=== PATIENT | male | born 1980 | race Caucasian/White ===

== ENCOUNTER → 2016-09-10 | Outpatient (CLI) | payer BC ==
[~2016-09-10] MED LIST: IBUP-103 PO; NRV/5 PO
[2016-09-10 11:43] LABS: ALT/SGPT 91 U/L (12-78); BLOOD UREA NITROGEN 15 mg/dl (7-18); CALCIUM 8.8 mg/dl (8.5-10.1); CARBON DIOXIDE 22 mmol/L (21-32); CHLORIDE 106 mmol/L (98-107); CHOLESTEROL 162 mg/dl (0-200); GLUCOSE 118 mg/dl (70-99); POTASSIUM 4.2 mmol/L (3.5-5.1); SODIUM 140 mmol/L (136-145); TRIGLYCERIDES 159 mg/dl (0-150); VERY LOW DENSITY LIPOPROT CALC 32 mg/dl
[2016-09-10 11:47] LABS: ALB/GLOB RATIO 1.3 (0.9-2); ALKALINE PHOSPHATASE 72 U/L (45-117); AST/SGOT 35 U/L (15-37); CHOLESTEROL/HDL RATIO 5.1; HDL CHOLESTEROL 32 mg/dl; LDL CHOLESTEROL CALCULATED 98 mg/dl
== END | disposition home or self-care (01) ==
LOC: C.LAB 09:42
PROVIDERS: ATTEND Nurse Practitioner Family
DX: Z13.220 Encounter for screening for lipoid disorders (principal)

== ENCOUNTER → 2017-07-09 | Outpatient (CLI) | payer BC ==
[2017-07-09 12:43] LABS: ALB/GLOB RATIO 1.3 (0.9-2); ALT/SGPT 103 U/L (12-78); AST/SGOT 50 U/L (15-37); BLOOD UREA NITROGEN 16 mg/dl (7-18); BUN/CREATININE RATIO 15.3 (10-20); CALCIUM 8.8 mg/dl (8.5-10.1); CARBON DIOXIDE 25 mmol/L (21-32); CHLORIDE 106 mmol/L (98-107); CREATININE 1.07 mg/dl (0.60-1.40); GLUCOSE 110 mg/dl (70-99); POTASSIUM 3.6 mmol/L (3.5-5.1); SODIUM 136 mmol/L (136-145); TRIGLYCERIDES 178 mg/dl (0-150)
[2017-07-09 12:44] LABS: ALKALINE PHOSPHATASE 73 U/L (45-117)
[2017-07-09 12:48] LABS: ESTIMATED AVERAGE GLUCOSE 117 mg/dl; HA1C FLAG Normal (Normal)
== END | disposition home or self-care (01) ==
LOC: C.LAB 10:55
PROVIDERS: ATTEND Nurse Practitioner Family
DX: E78.1 Pure hyperglyceridemia (principal)

== ENCOUNTER → 2017-07-17 | Outpatient (CLI) | payer BC ==
--- NOTE | 2017-07-17 09:07 | DIAGNOSTIC IMAGING REPORT ---
BILIARY ULTRASOUND CLINICAL HISTORY: ELEVATED LIVER ENZYMES;R74.8 COMPARISON STUDY: 02/02/2015 FINDINGS: The pancreas appears sonographically normal area the liver demonstrates diffusely increased echogenicity, nonspecific finding most often seen in hepatic steatosis. There is no ductal dilatation. The common bile duct measures 2.5 mm. There is a gallstone demonstrating shadowing. IMPRESSION: 1. Cholelithiasis. No evidence of ductal dilatation 2. Increased hepatic echogenicity, a finding likely secondary to hepatic steatosis Electronically signed by: Ike Nixon M.D. 07/17/2017 9:06 AM Dictated Date/Time: 07/17/2017 9:04 AM
== END | disposition home or self-care (01) ==
LOC: C.ULTR 08:03
PROVIDERS: ATTEND Nurse Practitioner Family
DX: R74.8 Abnormal levels of other serum enzymes (principal); K80.20 Calculus of gallbladder without cholecystitis without obstruction

== ENCOUNTER → 2017-11-21 | Day surgery (SDC) | payer BC ==
[2017-11-18 15:51] VITALS: Ht 177.8 cm; Wt 122.7 kg
[~2017-11-21] VITALS: Ht 177.8 cm; Wt 122.7 kg
[~2017-11-21] MED LIST changes: -IBUP-103 PO; +LIDOCAINE HCL 2% 2 ML VIAL (20MG/ML) ONE; +LISI-729 PO; +MIDAZOLAM HCL 1 MG/ML 2ML VIAL ONE; -NRV/5 PO; +PROPOFOL IV EMULSION 10 MG/ML 20 ML VIAL IV ONE; +SODIUM CHLORIDE 0.9% 500ML 500 ML IV ONE
--- NOTE | 2017-11-21 14:06 | Endo History and Physical ---
History & Physical Date of Service: Nov 21, 2017. Chief Complaint: Rectal bleeding Referring Physician: Fransisco Lucia History of Present Illness 37 yo CM who presents for colonoscopy secondary to rectal bleeding. Past Surgical History Hx Cardiac Surgery: No Hx Internal Defibrillator: No Hx Pacemaker: No Hx Abdominal Surgery: No Hx of Implantable Prosthesis: No Hx Post-Op Nausea and Vomiting: No Hx Cancer Surgery: No Hx Thoracic Surgery: No Hx Orthopedic: No Hx Urinary Tract Surgery: No Family History None Social History Smoking Status: Never Smoker Hx Substance Use: No Hx Alcohol Use: Yes (RARELY) Allergies Coded Allergies: Amlodipine (Verified Allergy, Unknown, DIARRHEA, 11/18/17) Current Medications Reported Home Medications Medications Dose Route/Sig Max Daily Dose Days Date Category Zestril (Lisinopril) 5 Mg Tab 5 Mg PO QPM 11/18/17 Reported Vital Signs Weight (Kilograms): 122.73 Height (Feet): 5 Height (Inches): 10 Physical Exam General Appearance: WD/WN, no apparent distress Respiratory/Chest: Auscultation: breath sounds normal Cardiovascular: Heart Auscultation: RRR Abdomen: Bowel Sounds: normal Inspection & Palpation: soft, non-distended, no tenderness, guarding & rebound Assessment and Plan Assessment: 37 yo CM who presents for colonoscopy secondary to rectal bleeding. Plan: Proceed with colonoscopy.
--- NOTE | 2017-11-21 14:49 | Discharge Instructions ---
Endoscopy Patient Instructions Date / Procedure(s) Performed Nov 21, 2017. Colonoscopy Allergy Information Coded Allergies: Amlodipine (Verified Allergy, Unknown, DIARRHEA, 11/18/17) Discharge Date / Findings Nov 21, 2017. Colon polyp Hemorrhoids Medication Instructions OK to resume all medications today as prescribed Reported Home Medications Medications Dose Route/Sig Max Daily Dose Days Date Category Zestril (Lisinopril) 5 Mg Tab 5 Mg PO QPM 11/18/17 Reported Provider Instructions Activity Restrictions - No exercising or heavy lifting for 24 hours. - Do not drink alcohol the day of the procedure. - Do not drive a car or operate machinery until the day after the procedure. - Do not make any important decisions or sign important papers in 24 hours after the procedure. Following Day: - Return to full activity which may include returning to work/school. Diet Start your diet with liquids and light foods (jello, soup, juice, toast). Then eat your usual diet if not nauseated. Treatment For Common After Affects For mild abdominal pain, bloating, or excessive gas: - Rest - Eat lightly - Lie on right side Follow-Up Information Follow-up with Dr. Fransisco Lucia as scheduled Anesthesia Information What You Should Know You have had a procedure that required some medicine to reduce anxiety and discomfort. This treatment is called moderate sedation. After receiving the treatment, you may be sleepy, but you will be able to breathe on your own. The effects of the treatment may last for several hours. Follow these instructions along with Activity/Diet recommendations noted above: * Do NOT do anything where dizziness or clumsiness would be dangerous. * Rest quietly at home today, then you can be up and about tomorrow. * Have a responsible person stay with you the rest of today. * You may have had an I.V. today. If so, you may take the dressing off later today. Recommendations Call your doctor if: * Trouble breathing * Continuous vomiting for more than 24 hours * Temperature above 101 degrees * Severe abdominal pain or bloating * Pain not relieved by pain medicine ordered * There is increased drainage or redness from any incision * A large amount of rectal bleeding greater than 2-3 tablespoons. (If you had a polyp/s removed or have hemorrhoids, a small amount of blood - from the rectum is to be expected.) * You have any unanswered questions or concerns. IN THE EVENT OF A SERIOUS EMERGENCY, GO TO THE NEAREST EMERGENCY ROOM Your discharge instructions were prepared by provider Mohinder Benoit. Patient Instructions Signature Page Manuel Lucia Patient (or Guardian) Signature/Date: I have read and understand the instructions given to me by my caregivers. Caregiver/RN/Doctor Signature/Date: The above-named patient and/or guardian has received patient instructions on this date. + Original Patient Signature Page (only) stays with chart. Please make copy for patient.
--- NOTE | 2017-11-21 14:54 | GI REPORT ---
Procedure Date: 11/21/2017 2:29 PM Procedure: Colonoscopy Indications: Rectal bleeding Medicines: Monitored Anesthesia Care Complications: No immediate complications. Estimated Blood Loss: Estimated blood loss: none. Procedure: Pre-Anesthesia Assessment: - Prior to the procedure, a History and Physical was performed, and patient medications and allergies were reviewed. The patient's tolerance of previous anesthesia was also reviewed. The risks and benefits of the procedure and the sedation options and risks were discussed with the patient. All questions were answered, and informed consent was obtained. Prior Anticoagulants: The patient has taken no previous anticoagulant or antiplatelet agents. ASA Grade Assessment: II - A patient with mild systemic disease. After reviewing the risks and benefits, the patient was deemed in satisfactory condition to undergo the procedure. After I obtained informed consent, the scope was passed under direct vision. Throughout the procedure, the patient's blood pressure, pulse, and oxygen saturations were monitored continuously. The scope was introduced through the anus and advanced to the terminal ileum. The colonoscopy was performed without difficulty. The patient tolerated the procedure well. The quality of the bowel preparation was good. The terminal ileum, the appendiceal orifice and the rectum were photographed. Findings: The perianal and digital rectal examinations were normal. Multiple small-mouthed diverticula were found in the sigmoid colon. A 5 mm polyp was found in the sigmoid colon. The polyp was sessile. The polyp was removed with a cold snare. Resection and retrieval were complete. Non-bleeding internal hemorrhoids were found during retroflexion. The hemorrhoids were small. Impression: - Diverticulosis in the sigmoid colon. - One 5 mm polyp in the sigmoid colon, removed with a cold snare. Resected and retrieved. - Non-bleeding internal hemorrhoids. Recommendation: - Resume previous diet. - Continue present medications. - Repeat colonoscopy for surveillance based on pathology results. - Return to primary care physician as previously scheduled. Mohinder Benoit DO 11/21/2017 2:53:46 PM This report has been signed electronically. Note Initiated On: 11/21/2017 2:29 PM I attest to the content of the Intraoperative Record and orders documented therein, exceptions below
[2017-11-21 14:58] VITALS: BP 132/89; PULSE 82; O2SAT 96
--- NOTE | 2017-11-21 15:00 | Anesthesiology Progress Note ---
Anesthesia Post Op Note Date & Time Nov 21, 2017 at 15:00 Vital Signs Pain Intensity: 0 Vital Signs Past 12 Hours Date Time Temp Pulse Resp B/P (MAP) Pulse Ox O2 Delivery O2 Flow Rate FiO2 11/21/17 14:48 90 18 146/91 (109) 95 Room Air 11/21/17 14:06 36.7 84 18 159/96 (117) 94 Room Air Notes Mental Status: alert / awake / arousable, participated in evaluation Pt Amnestic to Procedure: Yes Nausea / Vomiting: adequately controlled Pain: adequately controlled Airway Patency, RR, SpO2: stable & adequate BP & HR: stable & adequate Hydration State: stable & adequate Anesthetic Complications: no major complications apparent
== END | disposition home or self-care (01) ==
LOC: C.GI 13:44
PROVIDERS: ATTEND Internal Medicine
DX: K62.5 Hemorrhage of anus and rectum (principal); K63.5 Polyp of colon; K57.30 Diverticulosis of large intestine without perforation or abscess without bleeding; K64.8 Other hemorrhoids; I10 Essential (primary) hypertension; E66.9 Obesity, unspecified

== ENCOUNTER 2021-04-05 21:19 | Inpatient (IN) ==
[2021-04-05] MEDS ORDERED: SODIUM CHLORIDE 0.9% 1000ML 1,000 ML IV SCH (22:00)
[2021-04-05 22:35] LABS: Basophils # (auto) 0.03 K/uL (0-0.2); Basophils % (auto) 0.2 %; Eosinophils # (auto) 0.18 K/uL (0-0.5); Eosinophils % (auto) 1.1 %; Hematocrit (blood only) 39.6 % (42-52); Hemoglobin 14.1 g/dL (14.0-18.0); Immature Granulocytes # (auto) 0.06 K/uL (0.00-0.02); Immature Granulocytes % (auto) 0.4 %; Lymphocytes # (auto) 2.91 K/uL (1.2-3.4); Lymphocytes % (auto) 17.2 %; Mean Corpuscular Hemoglobin 30.6 pg (25-34); Mean Corpuscular Hgb Conc 35.6 g/dL (32-36); Mean Corpuscular Volume 85.9 fL (80-100); Mean Platelet Volume 11.5 fL (7.4-10.4); Monocytes # (auto) 1.08 K/uL (0.11-0.59); Monocytes % (auto) 6.4 %; Neutrophils # (auto) 12.67 K/uL (1.4-6.5); Neutrophils % (auto) 74.7 %; Platelet Count 196 K/uL (130-400); RDW Coefficient of Variation 13.3 % (11.5-14.5); RDW Standard Deviation 42.1 fL (36.4-46.3); Red Blood Count 4.61 M/uL (4.7-6.1); White Blood Count 16.93 K/uL (4.8-10.8)
[2021-04-05 23:03] LABS: Alanine Aminotransferase 92 U/L (12-78); Albumin Level 3.4 gm/dl (3.4-5.0); Aspartate Aminotransferase 44 U/L (15-37); BUN Creatinine Ratio 9.4 (10-20); Bilirubin,Total 0.8 mg/dl (0.2-1); Blood Urea Nitrogen 12 mg/dl (7-18); Calcium 8.2 mg/dl (8.5-10.1); Carbon Dioxide 26 mmol/L (21-32); Chloride 106 mmol/L (98-107); Creatine Kinase 163 U/L (39-308); Creatinine Clr Calc Pharmacy 108.9 ml/min; Est GFR (African American) 86.6 ml/min; Est GFR (Non-African American) 74.7 ml/min; Glucose 181 mg/dl (70-99); Lipase 109 U/L (73-393); Magnesium 1.8 mg/dl (1.8-2.4); Potassium 3.6 mmol/L (3.5-5.1); Sodium 138 mmol/L (136-145)
[2021-04-05] MEDS ORDERED: OPTIRAY 320 100ml IV ONE (23:10)
[2021-04-05 23:12] LABS: Albumin Globulin Ratio 1.2 (0.9-2); Alkaline Phosphatase 61 U/L (45-117); Globulin 2.8 gm/dl (2.5-4.0); Total Protein 6.2 gm/dl (6.4-8.2); Troponin I < 0.015 ng/ml (0-0.045)
--- NOTE | 2021-04-05 23:18 | Emergency Department Note ---
Impression & Plan Hemoperitoneum, Post-operative haemorrhage, Syncope, Abdominal pain ED Provider Note NAME: CHRISTIAN VILLATORO AGE: 40 SEX: M : 1980 ARRIVES VIA: Walk-In INFORMANT: Patient, the patient's significant other ED PROVIDER(S): Isaiah Oconnell DO CHIEF COMPLAINT: Syncope HPI: The patient is a 40-year-old male who presented to the emergency department for an evaluation of syncope. The patient had 2 syncopal episodes prior to arrival. The patient recently had an upper endoscopy with his primary hose tender. The patient's had elevated liver function studies but no cause for this is been found. For this reason he was sent for an upper endoscopy. He had biopsies and was able to be discharged home. He was feeling well until this evening. He was eating dinner with his significant other and stated that he felt that he was going to pass out. His significant other states that she went to lay him back but then he already passed out. She states his eyes rolled back into his head and he was very diaphoretic. The patient denies having any chest pain. He denies having any difficulty breathing. He does note some upper abdominal pain. He said no fever. He has had no recent trauma. The patient's review of systems was also positive for recent mononucleosis infection in January of this year. At this time the patient states he still feels lightheaded but almost back to his baseline. There was no reported seizure. ROS: See above HPI for pertinent positives & negatives. A total of 10 systems reviewed and were otherwise negative. PAST MEDICAL HISTORY: See Below PAST SURGICAL HISTORY: See Below FAMILY HISTORY: See Below SOCIAL HISTORY: See Below HOME MEDICATIONS: See Below ALLERGIES: See Below VITALS: See Below PHYSICAL EXAMINATION: GENERAL: The patient is awake and alert. The patient is somewhat anxious appearing. EYES: The conjunctivae are clear. The pupils are round and reactive. EARS, NOSE, MOUTH AND THROAT: The nose is without any evidence of any deformity. NECK: The neck is nontender and supple. RESPIRATORY: Normal respiratory effort is noted there is no evidence of wheezing rhonchi or rales CARDIOVASCULAR: Regular rate and rhythm noted there no murmurs rubs or gallops normal S1 normal S2. GASTROINTESTINAL: The abdomen is soft and mildly distended. There is upper abdominal tenderness to palpation. There is no guarding rigidity. MUSCULOSKELETAL/EXTREMITIES: There is no evidence of gross deformity full range of motion is noted in the hips and shoulders. SKIN: There is no obvious evidence of any rash. Skin is warm. There is no significant pedal edema. NEUROLOGIC: Patient is awake alert and oriented x3 strength is symmetric patellar reflexes are 2+ bilaterally MEDICAL DECISION MAKING: The patient is a 40-year-old male who presented to the emergency department for an evaluation of syncope. The patient had a recent upper endoscopy which included a biopsy of the liver. The patient had upper abdominal pain on physical exam but did not have a surgical abdomen on physical exam. Given his recent instrumentation CT the abdomen pelvis was obtained. This appeared to be consistent with hemoperitoneum so a repeat CT with IV contrast was obtained. The patient was treated with IV fluids and IV pain medication in the emergency department. He was also given IV Protonix and IV Pepcid. He had a type and s creen because of hemoperitoneum that was found on CT abdomen and pelvis. The CT report was not conclusive for the source of the bleeding. It was initially thought that this was from the spleen and given the patient's recent history of mononucleosis it could be a splenic rupture however given the patient's recent instrumentation this appears to be more consistent with bleeding from the biopsy site. The repeat skin did appear to be consistent with a source of bleeding around the liver or possibly around the duodenum. I discussed the patient's laboratory and radiographic studies with him and his significant other. He did have some episodes of near syncope where he dropped his blood pressure as well as pulse. It is unclear if this is secondary to vasovagal reaction due to pain or from the hemoperitoneum. I discussed the patient's condition with the on- call general surgeon. I also discussed this case with the surgical group at [facility]. They were unable to accept the patient in transfer. I discussed the patient's case again with the on-call general surgeon as well as the [facility] hospitalist. At this time we will observe the patient in our facility with serial abdominal exams and serial H&H's. The patient was agreeable with this plan. IV antibiotics were also ordered. Triage Nursing notes reviewed. Prior medical records reviewed Vital Signs: reviewed and remarkable for episodes of hypotension and bradycard ia. Differential diagnosis: Vasovagal event, dehydration, infection, hypoglycemia, electrolyte abnormalities, cardiac sources, intracerebral event, pulmonary embolism, seizure, toxicologic, neurologic, as well as other pathologies. ER treatment provided: See below Diagnostics interpreted by me: ECG: EKG was obtained in the emergency department. My interpretation is normal sinus rhythm at 74 bpm. There was no ectopy. There was no acute ST segment abnormalities noted. This was compared to a tracing from March 062019. No significant changes were noted. Cardiac Monitoring: An order was placed for continuous cardiac monitoring. The monitor shows a rate of 72 bpm with sinus rhythm. Laboratory studies: As stated above and show below. Imaging studies: See below Consultation(s): 2330: Discussed this case with Dr. Cavanaugh who is on-call for general surgery. He recommends transfer to a tertiary center. 0005: I discussed this case with Dr. Vang who is on-call for surgery at [facility]. He would accept the patient in transfer but no beds are available. 0020: I discussed this case with Dr. Greer who is on-call for [facility]. They will evaluate the patient in the emergency department. ED COURSE: Procedures: none PDMP:reviewed and no issues Critical Care: I have personally spent greater than 55 minutes of critical care time in the direct management of this patient. This includes bedside care, interpretation of diagnostic studies, and testing, discussion with consultants, patient, and family members, and other required patient management activities. This 55 minutes is in excess of all separately billable procedures. 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 Surgical History H/O colonoscopy Pilonidal cyst Family History Father Coronary heart disease Hypertension Myocardial infarction Mother Hypertension Cancer skin Grandmother (Maternal) Myocardial infarction Heart disease Brother Hypertension Grandmother Heart disease Denies family history of Ovarian cancer Prostate cancer Breast cancer Colorectal cancer Social History Smoking Status: Never smoker Second Hand Exposure: No; Hx Alcohol Use: No Hx Substance Use: No Preferred Language: Maori marital status: Current Living Situation: Family current occupational status: employed 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 How many Children do You have: 2 Feels Safe at Home: Yes Allergies Allergies Allergy/AdvReac Type Severity Reaction Status Date / Time lisinopril AdvReac Intermediate cough Verified 04/05/21 22:06 Home Meds Home Medications Medication Instructions Recorded Confirmed pantoprazole 40 mg tablet,delayed 40 mg PO DAILY tab 03/08/21 04/05/21 release psyllium husk 3.4 gram/5.4 gram 1 tbsp PO DAILY 04/05/21 04/05/21 oral powder (Metamucil) Previous Rx's Medication Instructions Recorded amlodipine 10 mg tablet 10 mg PO DAILY #90 tab 01/24/21 hydrochlorothiazide 12.5 mg tablet 12.5 mg PO DAILY #90 tab 03/08/21 Results & Data (ED) Vital Signs Vital Signs - 24 hr 04/05/21 21:20 04/05/21 22:17 04/05/21 22:18 Temperature 36.9 C Temperature Source Temporal Artery Scan Pulse Rate 96 H 47 L Pulse Rate [Right] 46 L 49 L Pulse Rate from SpO2 Sensor 46 L Respiratory Rate 20 20 23 Respiratory Effort / Characteristics Non-Labored Spontaneous Non-Labored Respiratory Depth Normal Normal Respiratory Pattern Regular Blood Pressure 120/78 75/38 L Blood Pressure [Left Arm] 92/45 L 75/38 L Blood Pressure Mean 92 50 Blood Pressure Mean [Left Arm] 60 50 Blood Pressure Position Sitting Pulse Oximetry 96 100 99 Oxygen Delivery Method Room Air Room Air Sepsis Recent Fever Within 48 Hours No Sepsis New/Unexplained Change in Mental Status No Sepsis Action Taken by Nursing No Action Required 04/05/21 22:19 04/05/21 22:20 04/05/21 22:22 Temperature Temperature Source Pulse Rate Pulse Rate [Right] 47 L 50 L 63 Pulse Rate from SpO2 Sensor Respiratory Rate 15 Respiratory Effort / Characteristics Non-Labored Respiratory Depth Normal Respiratory Pattern Blood Pressure Blood Pressure [Left Arm] 72/48 L 82/50 L 97/58 L Blood Pressure Mean Blood Pressure Mean [Left Arm] 56 60 71 Blood Pressure Position Pulse Oximetry Oxygen Delivery Method Sepsis Recent Fever Within 48 Hours Sepsis New/Unexplained Change in Mental Status Sepsis Action Taken by Nursing 04/05/21 22:26 04/05/21 22:30 04/05/21 23:00 Temperature Temperature Source Pulse Rate 76 80 Pulse Rate [Right] 68 Pulse Rate from SpO2 Sensor 75 81 Respiratory Rate 19 24 Respiratory Effort / Characteristics Respiratory Depth Respiratory Pattern Blood Pressure 118/70 142/98 H Blood Pressure [Left Arm] 123/75 Blood Pressure Mean 86 112 Blood Pressure Mean [Left Arm] 91 Blood Pressure Position Pulse Oximetry 96 98 Oxygen Delivery Method Sepsis Recent Fever Within 48 Hours Sepsis New/Unexplained Change in Mental Status Sepsis Action Taken by Nursing 04/05/21 23:32 04/06/21 00:00 04/06/21 00:33 Temperature Temperature Source Pulse Rate 80 78 68 Pulse Rate [Right] Pulse Rate from SpO2 Sensor 80 77 68 Respiratory Rate 20 20 28 H Respiratory Effort / Characteristics Respiratory Depth Respiratory Pattern Blood Pressure 126/83 125/81 89/47 L Blood Pressure [Left Arm] Blood Pressure Mean 97 95 61 Blood Pressure Mean [Left Arm] Blood Pressure Position Pulse Oximetry 98 98 95 Oxygen Delivery Method Sepsis Recent Fever Within 48 Hours Sepsis New/Unexplained Change in Mental Status Sepsis Action Taken by Nursing 04/06/21 00:35 04/06/21 00:40 04/06/21 00:45 Temperature Temperature Source Pulse Rate 72 80 68 Pulse Rate [Right] Pulse Rate from SpO2 Sensor 72 79 70 Respiratory Rate 19 20 24 Respiratory Effort / Characteristics Respiratory Depth Respiratory Pattern Blood Pressure 115/77 136/79 118/74 Blood Pressure [Left Arm] Blood Pressure Mean 89 98 88 Blood Pressure Mean [Left Arm] Blood Pressure Position Pulse Oximetry 95 94 94 Oxygen Delivery Method Sepsis Recent Fever Within 48 Hours Sepsis New/Unexplained Change in Mental Status Sepsis Action Taken by Nursing 04/06/21 00:50 04/06/21 00:55 04/06/21 01:00 Temperature Temperature Source Pulse Rate 79 78 72 Pulse Rate [Right] Pulse Rate from SpO2 Sensor 82 77 73 Respiratory Rate 20 20 24 Respiratory Effort / Characteristics Respiratory Depth Respiratory Pattern Blood Pressure 123/72 127/75 115/76 Blood Pressure [Left Arm] Blood Pressure Mean 89 92 89 Blood Pressure Mean [Left Arm] Blood Pressure Position Pulse Oximetry 96 95 95 Oxygen Delivery Method Sepsis Recent Fever Within 48 Hours Sepsis New/Unexplained Change in Mental Status Sepsis Action Taken by Long-Term Medications Current Medication List: was personally reviewed by me Laboratory Data Attestation: I reviewed the patient's lab results. Result diagrams: 04/06/21 00:32 04/05/21 22:23 Lab Results 04/05/21 04/05/21 04/05/21 Range/Units 22:23 22:23 23:35 WBC 16.93 H (4.8-10.8) K/uL RBC 4.61 L (4.7-6.1) M/uL Hgb 14.1 (14.0-18.0) g/dL Hct 39.6 L (42-52) % MCV 85.9 (80-100) fL MCH 30.6 (25-34) pg MCHC 35.6 (32-36) g/dL RDW Std Deviation 42.1 (36.4-46.3) fL RDW Coeff of Katty 13.3 (11.5-14.5) % Plt Count 196 (130-400) K/uL MPV 11.5 H (7.4-10.4) fL Immature Gran % (Auto) 0.4 % Neut % (Auto) 74.7 % Lymph % (Auto) 17.2 % [place] % (Auto) 6.4 % Eos % (Auto) 1.1 % Baso % (Auto) 0.2 % Neut # (Auto) 12.67 H (1.4-6.5) K/uL Lymph # (Auto) 2.91 (1.2-3.4) K/uL [place] # (Auto) 1.08 H (0.11-0.59) K/uL Eos # (Auto) 0.18 (0-0.5) K/uL Baso # (Auto) 0.03 (0-0.2) K/uL Immature Gran # (Auto) 0.06 H (0.00-0.02) K/uL PT (9.0-12.0) Seconds INR (0.9-1.1) APTT (21.0-31.0) Seconds PTT Ratio Sodium 138 (136-145) mmol/L Potassium 3.6 (3.5-5.1) mmol/L Chloride 106 (98-107) mmol/L Carbon Dioxide 26 (21-32) mmol/L Anion Gap 7.0 (3-11) BUN 12 (7-18) mg/dl Creatinine 1.22 (0.6-1.4) mg/dl Est Cr Clr Drug Dosing 108.9 ml/min Est GFR ( Amer) 86.6 ml/min Est GFR (Non-Af Amer) 74.7 ml/min BUN/Creatinine Ratio 9.4 L (10-20) Glucose 181 H (70-99) mg/dl Lactate (0.4-2.0) mmol/L Calcium 8.2 L (8.5-10.1) mg/dl Magnesium 1.8 (1.8-2.4) mg/dl Total Bilirubin 0.8 (0.2-1) mg/dl AST 44 H (15-37) U/L ALT 92 H (12-78) U/L Alkaline Phosphatase 61 (45-117) U/L Total Creatine Kinase 163 (39-308) U/L Troponin I < 0.015 (0-0.045) ng/ml Total Protein 6.2 L (6.4-8.2) gm/dl Albumin 3.4 (3.4-5.0) gm/dl Globulin 2.8 (2.5-4.0) gm/dl Albumin/Globulin Ratio 1.2 (0.9-2) Lipase 109 (73-393) U/L TSH 1.290 (0.300-4.500) uIu/ml Urine Color Urine Appearance (Clear) Urine pH (4.5-7.5) Ur Specific [place] (1.000-1.030) Urine Protein (Negative) Urine Glucose (UA) (Negative) Urine Ketones (Negative) Urine Blood (Negative) Urine Nitrite (Negative) Urine Bilirubin (Negative) Urine Urobilinogen (Negative) Ur Leukocyte Esterase (Negative) COVID-19 Eval Order Covid19 at [facility] SARS-CoV-2 (PCR) (Negative) Crossmatch 04/05/21 04/06/21 04/06/21 Range/Units 23:35 00:00 00:10 WBC (4.8-10.8) K/uL RBC (4.7-6.1) M/uL Hgb (14.0-18.0) g/dL Hct (42-52) % MCV (80-100) fL MCH (25-34) pg MCHC (32-36) g/dL RDW Std Deviation (36.4-46.3) fL RDW Coeff of Katty (11.5-14.5) % Plt Count (130-400) K/uL MPV (7.4-10.4) fL Immature Gran % (Auto) % Neut % (Auto) % Lymph % (Auto) % [place] % (Auto) % Eos % (Auto) % Baso % (Auto) % Neut # (Auto) (1.4-6.5) K/uL Lymph # (Auto) (1.2-3.4) K/uL [place] # (Auto) (0.11-0.59) K/uL Eos # (Auto) (0-0.5) K/uL Baso # (Auto) (0-0.2) K/uL Immature Gran # (Auto) (0.00-0.02) K/uL PT (9.0-12.0) Seconds INR (0.9-1.1) APTT (21.0-31.0) Seconds PTT Ratio Sodium (136-145) mmol/L Potassium (3.5-5.1) mmol/L Chloride (98-107) mmol/L Carbon Dioxide (21-32) mmol/L Anion Gap (3-11) BUN (7-18) mg/dl Creatinine (0.6-1.4) mg/dl Est Cr Clr Drug Dosing ml/min Est GFR ( Amer) ml/min Est GFR (Non-Af Amer) ml/min BUN/Creatinine Ratio (10-20) Glucose (70-99) mg/dl Lactate 1.6 (0.4-2.0) mmol/L Calcium (8.5-10.1) mg/dl Magnesium (1.8-2.4) mg/dl Total Bilirubin (0.2-1) mg/dl AST (15-37) U/L ALT (12-78) U/L Alkaline Phosphatase (45-117) U/L Total Creatine Kinase (39-308) U/L Troponin I (0-0.045) ng/ml Total Protein (6.4-8.2) gm/dl Albumin (3.4-5.0) gm/dl Globulin (2.5-4.0) gm/dl Albumin/Globulin Ratio (0.9-2) Lipase (73-393) U/L TSH (0.300-4.500) uIu/ml Urine Color Yellow Urine Appearance Clear (Clear) Urine pH 6.0 (4.5-7.5) Ur Specific [place] 1.027 (1.000-1.030) Urine Protein Negative (Negative) Urine Glucose (UA) Negative (Negative) Urine Ketones Negative (Negative) Urine Blood Negative (Negative) Urine Nitrite Negative (Negative) Urine Bilirubin Negative (Negative) Urine Urobilinogen Negative (Negative) Ur Leukocyte Esterase Negative (Negative) COVID-19 Eval Order SARS-CoV-2 (PCR) NEGATIVE (Negative) Crossmatch 04/06/21 04/06/21 04/06/21 Range/Units 00:12 00:32 00:32 WBC (4.8-10.8) K/uL RBC (4.7-6.1) M/uL Hgb 13.4 L (14.0-18.0) g/dL Hct 37.5 L (42-52) % MCV (80-100) fL MCH (25-34) pg MCHC (32-36) g/dL RDW Std Deviation (36.4-46.3) fL RDW Coeff of Katty (11.5-14.5) % Plt Count (130-400) K/uL MPV (7.4-10.4) fL Immature Gran % (Auto) % Neut % (Auto) % Lymph % (Auto) % [place] % (Auto) % Eos % (Auto) % Baso % (Auto) % Neut # (Auto) (1.4-6.5) K/uL Lymph # (Auto) (1.2-3.4) K/uL [place] # (Auto) (0.11-0.59) K/uL Eos # (Auto) (0-0.5) K/uL Baso # (Auto) (0-0.2) K/uL Immature Gran # (Auto) (0.00-0.02) K/uL PT 10.3 (9.0-12.0) Seconds INR 1.0 (0.9-1.1) APTT 23.9 (21.0-31.0) Seconds PTT Ratio 0.9 Sodium (136-145) mmol/L Potassium (3.5-5.1) mmol/L Chloride (98-107) mmol/L Carbon Dioxide (21-32) mmol/L Anion Gap (3-11) BUN (7-18) mg/dl Creatinine (0.6-1.4) mg/dl Est Cr Clr Drug Dosing ml/min Est GFR ( Amer) ml/min Est GFR (Non-Af Amer) ml/min BUN/Creatinine Ratio (10-20) Glucose (70-99) mg/dl Lactate (0.4-2.0) mmol/L Calcium (8.5-10.1) mg/dl Magnesium (1.8-2.4) mg/dl Total Bilirubin (0.2-1) mg/dl AST (15-37) U/L ALT (12-78) U/L Alkaline Phosphatase (45-117) U/L Total Creatine Kinase (39-308) U/L Troponin I (0-0.045) ng/ml Total Protein (6.4-8.2) gm/dl Albumin (3.4-5.0) gm/dl Globulin (2.5-4.0) gm/dl Albumin/Globulin Ratio (0.9-2) Lipase (73-393) U/L TSH (0.300-4.500) uIu/ml Urine Color Urine Appearance (Clear) Urine pH (4.5-7.5) Ur Specific [place] (1.000-1.030) Urine Protein (Negative) Urine Glucose (UA) (Negative) Urine Ketones (Negative) Urine Blood (Negative) Urine Nitrite (Negative) Urine Bilirubin (Negative) Urine Urobilinogen (Negative) Ur Leukocyte Esterase (Negative) COVID-19 Eval Order SARS-CoV-2 (PCR) (Negative) Crossmatch See Detail Administered Medications Fentanyl Citrate (Fentanyl Citrate 100 Mcg/2 Ml Vial) 50 mcg IV Q15M PRN PRN Reason: Pain Stop: 04/19/21 23:48 Last Admin: 04/05/21 23:58 Dose: 50 mcg Documented by: [id number] Desmopressin Acetate 37 mcg/ (Sodium Chloride) 59.25 mls @ 100 mls/hr IV NOW STA Stop: 04/06/21 01:34 Last Admin: 04/06/21 01:13 Dose: 100 mls/hr Documented by: [id number] Discontinued Medications Sodium Chloride (Nss 1000ml) 1,000 mls @ 999 mls/hr IV .Q1H1M MARCIE Stop: 04/05/21 23:00 Last Infusion: 04/05/21 23:22 Dose: 0 mls/hr Documented by: [id number] Admin: 04/05/21 22:19 Dose: 999 mls/hr Documented by: [id number] Pantoprazole Sodium 40 mg/ (Syringe) 10 mls @ 5 mls/min IV NOW ONE Stop: 04/05/21 23:38 Last Admin: 04/05/21 23:59 Dose: 5 mls/min Documented by: [id number] Famotidine (Pepcid 20mg Iv Push) 20 mg in 5 mls @ 2.5 mls/min IV NOW STA Stop: 04/05/21 23:38 Last Admin: 04/05/21 23:46 Dose: 2.5 mls/min Documented by: [id number] Piperacillin Sod/Tazobactam Sod (Zosyn) 4.5 gm in 120 mls @ 240 mls/hr IV NOW ONE Stop: 04/06/21 00:59 Last Infusion: 04/06/21 01:11 Dose: 0 mls/hr Documented by: [id number] Admin: 04/06/21 00:41 Dose: 240 mls/hr Documented by: [id number] Sodium Chloride (Nss) 500 mls @ 999 mls/hr IV .Q31M ONE Stop: 04/06/21 01:01 Last Infusion: 04/06/21 01:02 Dose: 0 mls/hr Documented by: [id number] Admin: 04/06/21 00:31 Dose: 999 mls/hr Documented by: [id number] Ioversol (Optiray 320 100ml) 92 ml IV ONCE ONE Stop: 04/05/21 23:11 Last Admin: 04/05/21 23:10 Dose: 92 ml Documented by: [id number] Ondansetron HCl (Ondansetron Inj 2 Mg/Ml 2 Ml Vial) 4 mg IV NOW STA Stop: 04/05/21 23:50 Last Admin: 04/05/21 23:59 Dose: 4 mg Documented by: [id number] Imaging Data Radiologist's Impression: Patient: CHRISTIAN VILLATORO (Male) : 84 Status: ER Date: 04/05/21 22:54 Room #: History: SYNCOPE Slices: 58 Priors: Tech: Adam Eden @ [phone] Exams: CT HEAD Contrast: Accession Numbers: [id number] Referring Physician: REFERRED SELF Preliminary Findings Only See Final Report For Complete Findings CT HEAD: Comparison 02/01/2015. No acute intracranial hemorrhage, edema or mass. No extra-axial fluid collection. No calvarial fracture. Visualized orbits, paranasal sinuses and mastoids are unremarkable. Radiologist: Ranjan Ibrahim M.D. Study ready at 22:57 and initial results transmitted at 23:23 Patient: CHRISTIAN VILLATORO (Male) : 84 Status: ER Date: 04/05/21 22:56 Room #: History: UPPER ABD PAIN Slices: [id number] Priors: Tech: deskwolf, Adam @ [phone] Exams: CT ABDOMEN & PELVIS Without Contrast Contrast: Accession Numbers: [id number] Referring Physician: REFERRED SELF Preliminary Findings Only See Final Report For Complete Findings CT ABDOMEN & PELVIS Without Contrast: Acute hemoperitoneum of indeterminate origin. This is predominantly around the spleen, caudal liver and within the pelvis. Hyperdense clot also seen in the r ight upper abdominal mesentery adjacent to the distal stomach and proximal transverse colon. Hepatic steatosis. Solid organs otherwise unremarkable within limits of noncontrast technique. Cholelithiasis. No biliary dilatation. No bowel obstruction. Unremarkable appendix. Colonic diverticulosis. No acute diverticulitis. No abscess or free air. 4 cm mixed lucent and sclerotic lesion in the proximal right femur. No acute osseous abnormality. Mild bibasilar atelectasis. Several bibasilar lung nodules measuring 3 mm. Radiologist: Ranjan Ibrahim M.D. Study ready at 23:01 and initial results transmitted at 23:31 Communications: Clear Time Type Notes Call Doctor Massive hemoperitoneum Patient: CHRISTIAN VILLATORO (Male) : 84 Status: ER Date: 04/05/21 23:24 Room #: History: UPPER ABD PAIN Slices: 853 Priors: Tech: [place], Adam @ [phone] Exams: CT ABDOMEN & PELVIS With Contrast Contrast: IV Amt: 92 Accession Numbers: [id number] Referring Physician: REFERRED SELF Preliminary Findings Only See Final Report For Complete Findings CT ABDOMEN & PELVIS With Contrast: Exam correlated with the earlier noncontrast study. Tiny bibasilar lung nodules and mild bibasilar atelectasis, as before. Persistent acute hemoperitoneum. Again this is most pronounced around the caudal liver, spleen and pelvis. Persistent hyperdense sentinel clots in the right upper abdominal mesentery and along the wall of the distal stomach which appears thickened. Suspect source of hemorrhage may be from the stomach given history of endoscopy with biopsies. Crescentic hyperdensity along the lateral wall of the proximal duodenum which could be a small focus of extravasation but this is not definite as hyperdense material was present in the gastric lumen on precontrast exam. No other areas of active extravasation identified. Enlarged spleen. No discrete splenic laceration identified. Solid organs are otherwise unremarkable without definite evidence for solid organ injury. Cholelithiasis, as before. No bowel obstruction. Unremarkable appendix. No free air. No acute osseous abnormality. 4 cm geographic mixed lucent and sclerotic lesion in the proximal right femur, as before. Radiologist: Ranjan Ibrahim M.D. Study ready at 23:34 and initial results transmitted at 23:53 Discharge Plan Visit Data Chief Complaint: Neuro Symptoms/Deficit Stated Complaint: ROLLING EYES IN BACK OF HEAD, CHILLS ED Provider: Isaiah Oconnell Discharge Problem: Hemoperitoneum, Post-operative haemorrhage, Syncope, Abdominal pain Patient Disposition: Being Evaluated by Hospitalist Forms Stand Alone Forms: My [facility] Prescriptions Prescriptions: No Action amlodipine 10 mg tablet 10 mg PO DAILY Qty: 90 RF: 1 pantoprazole 40 mg tablet,delayed release (DR/EC) 40 mg PO DAILY RF: 0 hydrochlorothiazide 12.5 mg tablet 12.5 mg PO DAILY Qty: 90 RF: 1 Metamucil 3.4 gram/5.4 gram Powder 1 tbsp PO DAILY RF: 0 Referrals Referrals: Fransisco Villatoro DO [Primary Care Provider] -
[2021-04-05] MEDS ORDERED: PANTOprazole 40 MG in SYRINGE 0 ML IV ONE (23:37)
[2021-04-05] MEDS ORDERED: FAMOTIDINE 20MG IV PUSH 20 MG/5 ML SYR IV STA (23:37)
[2021-04-05] MEDS ORDERED: fentaNYL citrate 100 MCG/2 ML VIAL IV PRN (23:49)
[2021-04-05] MEDS ORDERED: ONDANSETRON INJ 2 MG/ML 2 ML VIAL IV STA (23:49)
[2021-04-06 00:12] LABS: Appearance Urine Clear (Clear); Bilirubin Urine Negative (Negative); Blood Urine Negative (Negative); Color Urine Yellow; Glucose Urine UA Negative (Negative); Ketones Urine Negative (Negative); Leukocyte Esterase Urine Negative (Negative); Nitrite Urine Negative (Negative); Protein Urine Negative (Negative); Specific Gravity Urine 1.027 (1.000-1.030); Urobilinogen Urine Negative (Negative)
[2021-04-06] MEDS ORDERED: SODIUM CHLORIDE 0.9% 250 ML IV PRN (00:28)
[2021-04-06] MEDS ORDERED: PIPERACILLIN/TAZOBACTAM 4.5 GM/120 ML BAG IV ONE (00:30)
[2021-04-06] MEDS ORDERED: PIPERACILL/TAZOBAC CONSULT ACTIVE PRN ×2 (00:30→01:14)
[2021-04-06 00:31] LABS: Partial Thromboplastin Ratio 0.9; Partial Thromboplastin Time 23.9 Seconds (21.0-31.0); Prothrombin Time 10.3 Seconds (9.0-12.0)
[2021-04-06] MEDS ORDERED: SODIUM CHLORIDE 0.9% 500 ML IV ONE (00:31)
[2021-04-06 00:44] LABS: Hematocrit (blood only) 37.5 % (42-52); Hemoglobin 13.4 g/dL (14.0-18.0)
--- NOTE | 2021-04-06 00:46 | Surgery Consultation ---
Date of Consultation April 06, 2021 Assessment & Plan (1) Hemoperitoneum: Patient is being admitted to [facility] on the hospitalist service. We recommend proceeding as follows: Due to the hemoperitoneum in the patient's syncopal episodes we recommend admitting the patient to the intensive care unit We will type and crossmatch the patient for 2 units packed red blood cells Recommend following serial hemoglobin and hematocrits. These have been ordered to cover the first 24 hours of the patient's admission Hydrate the patient gently with IV fluids We will keep the patient n.p.o. for the present time The patient has a significant drop in his hemoglobin and hematocrit remain list transfusion of blood products. We will follow the patient's laboratories and clinical progress very closely with further recommendations to follow based on serial labs as well as his clinical course. Dr. Cavanaugh-patient was seen in the emergency department-he has an acute hemoperitoneum from unknown etiology after endoscopy today which may have included a liver biopsy. It does not appear from the CT scan that he has a significant splenic injury There is also thought that he could be having some bleeding from near the stomach. We will admit him to the intensive care unit Keep him at bedrest and monitor his H&H and vital signs. I would consider transfusion of 2 to 4 units of blood prior to any attempt At laparotomy. History of Present Illness Reason for Consultation: Hemoperitoneum History of Present Illness This is a 40-year-old male who presented to [facility] emergency department secondary to abdominal pain as well as a syncopal episode. Patient relates that he had employment physical several months ago where patient was noted to have LFTs. 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 He has since followed with gastroenterology and ultimately underwent an endoscopic ultrasound and EGD with biopsies including liver biopsy today by Dr. Gunter. Patient also notes that an evaluation of his liver abnormalities he did have a gallbladder ultrasound in January of this year that showed gallbladder distention where he was noted to have gallbladder sludge as well as gallstones. Patient notes the following his and endoscopy today he returned home and was doing well. He says that he ate solid food for dinner and has been drinking water since that procedure. He has had some generalized abdominal pain without nausea vomiting. He notes the pain does not radiate and it is confined mostly to the right upper quadrant epigastric areas. Patient says that earlier this evening he was sitting and trying to adjust his reclining chair when he had an episode of dizziness and he actually passed out and fell back into his recliner. Because of this his prompted him to come to the emergency department and the patient said he had a similar episode in the car in route to the emergency department. Patient denies any fevers, shakes, chills. He denies any chest pain or shortness of breath. In the emergency department the patient had labs and imaging which I independently reviewed. A chest x-ray did not show any evidence of pneumonia however the patient was noted to have bilateral atelectasis at the bases. CT scan of the head showed no acute intracranial hemorrhage, edema or mass-effect. Patient also underwent a CT scan of the abdomen and pelvis without utilizing any contrast. The patient was noted to have acute hemoperitoneum on the study however the origin of the hemoperitoneum was unable to be ascertained. Most of the hemoperitoneum on the study was surrounding the spleen however a small amount was noted in the right upper quadrant abdominal mesentery adjacent to the distal stomach and transverse colon. No other abnormalities other than cholelithiasis were noted on the abdominal CT scan. Dysuria specifically no free air or abscess noted. Patient then underwent a CT scan of the abdomen pelvis utilizing IV contrast. Hemoperitoneum was again demonstrated however most of the hemoperitoneum was most pronounced around the caudal liver, spleen, and pelvis. Based on this study the suspected source of hemorrhage was felt to be arising from the stomach. There were no discrete splenic lacerations identi fied. Patient did have labs where his white blood cell count was noted to be 16.9. His hemoglobin and hematocrit were 13.4 and 37.5. Platelet count was noted to be within normal range. Coagulation studies were noted to be normal. Chemistry profile showed sodium, potassium, BUN, and creatinine were all within normal range. Patient was noted to have a normal lipase. A Covid test has been ordered and is pending. There is no evidence of urinary tract infection on urinalysis In the emergency department the patient was in no overt distress but he did have an episode of hypotension without tachycardia. Was treated with intravenous fluids. 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 Surgical History H/O colonoscopy Pilonidal cyst Family History Father Coronary heart disease Hypertension Myocardial infarction Mother Hypertension Cancer skin Grandmother (Maternal) Myocardial infarction Heart disease Brother Hypertension Grandmother Heart disease Denies family history of Ovarian cancer Prostate cancer Breast cancer Colorectal cancer Social History Smoking Status: Never smoker Second Hand Exposure: No; Hx Alcohol Use: No Hx Substance Use: No Preferred Language: Slovenian Beliefs That Will Affect Care: None marital status: Current Living Situation: Spouse current occupational status: employed 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 [employer] How many Children do You have: 2 Feels Safe at Home: Yes Assistive Devices: None Review of Systems Constitutional: no fever and no chills Eyes: no diplopia Ear, Nose, Mouth, Throat: no ear pain and no sore throat Respiratory: no cough and no dyspnea Cardiovascular: no chest pain Gastrointestinal: + abdominal pain; no nausea and no vomiting Genitourinary: no dysuria Musculoskeletal: no back pain Integumentary: no rash Neurologic: + syncope Physical Exam Constitutional: well developed and well nourished; no acute distress Eyes: no conjunctival abnormality ENMT: Ears: no hearing impairment Mouth: no oropharynx abnormality Neck: trachea midline Respiratory: normal respiratory effort; no respiratory distress and no labored breathing Cardiovascular: Rate/Rhythm: regular rate and regular rhythm Gastrointestinal (Abdomen): Patient's abdomen is soft and nondistended. There is no evidence of ecchymosis which is [place] sign or [place] sign. No rebound tenderness or guarding. Patient did have pain with palpation which appeared to be greatest in the right upper quadrant and epigastric area and to a lesser degree the left upper quadrant. Musculoskeletal: No calf tenderness Skin: no rashes Neurologic: moves all extremities and awake; no focal motor deficits Psychiatric: A+Ox3, euthymic affect Results & Data ([facility]) Vital Signs (Past 12 Hours) Vital Signs Temp Pulse Pulse Resp BP BP Pulse Ox 04/06/21 00:33 68 28 H 89/47 L 95 04/06/21 00:00 78 20 125/81 98 04/05/21 23:32 80 20 126/83 98 04/05/21 23:00 80 24 142/98 H 98 04/05/21 22:30 76 19 118/70 96 04/05/21 22:26 68 123/75 04/05/21 22:22 63 15 97/58 L 04/05/21 22:20 50 L 82/50 L 04/05/21 22:19 47 L 72/48 L 04/05/21 22:18 47 L 49 L 23 75/38 L 75/38 L 99 04/05/21 22:17 46 L 20 92/45 L 100 04/05/21 21:20 36.9 C 96 H 20 120/78 96 PG Care Time/CCT Total # of Minutes Spent Total Time Spent with Patient: Total time spent is greater than 50% in coordination of care (as documented) at patient's floor/unit and/or counseling patient: Coding Level of Care Code 25481 Inpt Consult Level 5 Diagnoses Hemoperitoneum K66.1
[2021-04-06] MEDS ORDERED: SODIUM CHLORIDE 0.9% IV STA (00:59)
[2021-04-06] MEDS ORDERED: DESMOPRESSIN ACETATE IV STA (00:59)
--- NOTE | 2021-04-06 01:02 | History & Physical Report ---
Date of Service April 06, 2021 Assessment & Plan (1) Hemoperitoneum: Plan: Acute hemoperitoneum/history of endoscopic biopsies- NPO Receiving normal saline fluid boluses in the ED Follow with normal saline plus KCl 20 mEq at high 50 mils per hour Serial H&H's Protonix 40 mg IV given in the ED and continue every morning Zofran 4 mg IV every 6 hours as needed Famotidine 20 mg IV every 12 hours Zosyn 4.5 g IV every 8 hours Fentanyl 50 mcg IV every 15 minutes in the ED as needed, will change to every 3 hours as needed upon admission Consult general surgery Dr. Cavanaugh Consult gastroenterology Dr. Gunter Consult delivery assistant (2) Transaminitis: Plan: Chronic issue (3) Hypertension: Plan: Holding amlodipine and HCTZ (4) Hyperglycemia: Plan: Glucose 181 upon admission Check hemoglobin A1c Hyperglycemic protocol while in the ICU (5) Neutrophilic leukocytosis: Plan: Placing on Zosyn 4.5 g IV every 8 hours History of Present Illness Chief Complaint: The patient presents to the emergency department for assessment of 2 syncopal episodes that occurred prior to arrival Primary Care Provider: Fransisco Villatoro DO The patient is a 40-year-old male with a past medical history including hypertension, transaminitis and obesity. Earlier in the morning, had undergone an upper endoscopy by gastroenterology, had biopsies taken and was discharged to home. He had been doing well until supper this evening, when he felt like he was going to pass out. His significant other reports that she cleaned them gently backwards, but already passed out by that time. There is no history of trauma there is a history of a mononucleosis infection in January earlier this year. In the emergency department, work-up included the following: CT scan of abdomen pelvis showed acute hemoperitoneum. He was noted to be briefly hypotensive while in ED, but did respond to IV fluid rehydration The patient will be moved to the ICU for close follow-up Allergies Allergy/AdvReac Type Severity Reaction Status Date / Time lisinopril AdvReac Intermediate cough Verified 04/05/21 22:06 Home Medications Medication Instructions Recorded Confirmed Type amlodipine 10 mg tablet 10 mg PO DAILY #90 tab 01/24/21 04/05/21 Rx hydrochlorothiazide 12.5 mg tablet 12.5 mg PO DAILY #90 tab 03/08/21 04/05/21 Rx pantoprazole 40 mg tablet,delayed 40 mg PO DAILY tab 03/08/21 04/05/21 History release psyllium husk 3.4 gram/5.4 gram 1 tbsp PO DAILY 04/05/21 04/05/21 History oral powder (Metamucil) 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 Surgical History H/O colonoscopy Pilonidal cyst Family History Father Coronary heart disease Hypertension Myocardial infarction Mother Hypertension Cancer skin Grandmother (Maternal) Myocardial infarction Heart disease Brother Hypertension Grandmother Heart disease Denies family history of Ovarian cancer Prostate cancer Breast cancer Colorectal cancer Social History Smoking Status: Never smoker Second Hand Exposure: No; Hx Alcohol Use: No Hx Substance Use: No Preferred Language: Maori marital status: Current Living Situation: Family current occupational status: employed 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 The review of systems is otherwise negative other than for that already noted above, and at least 10 systems have been reviewed. Physical Exam Physical Exam: The patient is awake, alert and oriented 3, well developed and well nourished, normocephalic and atraumatic, lying in bed and in no acute dis tress. HEENT--PERRL, EOMI, mucous membranes and oropharynx normal Neck--supple. No JVD. No bruits. Thyroid normal, trachea midline, no adenopathy. Heart--normal S1 and S2. No murmurs, rubs or gallops. Lungs--clear bilaterally, no respiratory distress, no accessory muscle use. Abdomen--normal bowel sounds. Mildly firm. Generalized tenderness. Mildly tympanitic Extremities--no cyanosis or clubbing. No edema. Dermatologic--normal skin turgor, normal color, no abnormal lymph nodes, no rash. Neurologic--cranial nerves II through XII grossly intact. Rheumatologic--limited exam due to abdominal pain Psychiatric--normal affect. Results & Data Results & Data ([facility]) Vital Signs (Past 12 Hours) Vital Signs Temp Pulse Pulse Resp BP BP Pulse Ox 04/06/21 00:33 68 28 H 89/47 L 95 04/06/21 00:00 78 20 125/81 98 04/05/21 23:32 80 20 126/83 98 04/05/21 23:00 80 24 142/98 H 98 04/05/21 22:30 76 19 118/70 96 04/05/21 22:26 68 123/75 04/05/21 22:22 63 15 97/58 L 04/05/21 22:20 50 L 82/50 L 04/05/21 22:19 47 L 72/48 L 04/05/21 22:18 47 L 49 L 23 75/38 L 75/38 L 99 04/05/21 22:17 46 L 20 92/45 L 100 04/05/21 21:20 98.4 F 96 H 20 120/78 96 Laboratory Results Laboratory Results WBC 16.93 K/uL (4.8-10.8) H 04/05/21 22:23 RBC 4.61 M/uL (4.7-6.1) L 04/05/21 22:23 Hgb 13.4 g/dL (14.0-18.0) L 04/06/21 00:32 Hct 37.5 % (42-52) L 04/06/21 00:32 MCV 85.9 fL (80-100) 04/05/21 22:23 MCH 30.6 pg (25-34) 04/05/21 22:23 MCHC 35.6 g/dL (32-36) 04/05/21 22:23 RDW Std Deviation 42.1 fL (36.4-46.3) 04/05/21 22:23 RDW Coeff of Katty 13.3 % (11.5-14.5) 04/05/21 22:23 Plt Count 196 K/uL (130-400) 04/05/21 22:23 MPV 11.5 fL (7.4-10.4) H 04/05/21 22:23 Immature Gran % (Auto) 0.4 % 04/05/21 22:23 Neut % (Auto) 74.7 % 04/05/21 22:23 Lymph % (Auto) 17.2 % 04/05/21 22:23 [place] % (Auto) 6.4 % 04/05/21 22:23 Eos % (Auto) 1.1 % 04/05/21 22:23 Baso % (Auto) 0.2 % 04/05/21 22:23 Neut # (Auto) 12.67 K/uL (1.4-6.5) H 04/05/21 22:23 Lymph # (Auto) 2.91 K/uL (1.2-3.4) 04/05/21 22:23 [place] # (Auto) 1.08 K/uL (0.11-0.59) H 04/05/21 22:23 Eos # (Auto) 0.18 K/uL (0-0.5) 04/05/21 22:23 Baso # (Auto) 0.03 K/uL (0-0.2) 04/05/21 22:23 Immature Gran # (Auto) 0.06 K/uL (0.00-0.02) H 04/05/21 22:23 PT 10.3 Seconds (9.0-12.0) 04/06/21 00:12 INR 1.0 (0.9-1.1) 04/06/21 00:12 APTT 23.9 Seconds (21.0-31.0) 04/06/21 00:12 PTT Ratio 0.9 04/06/21 00:12 Sodium 138 mmol/L (136-145) 04/05/21 22:23 Potassium 3.6 mmol/L (3.5-5.1) 04/05/21 22:23 Chloride 106 mmol/L (98-107) 04/05/21 22:23 Carbon Dioxide 26 mmol/L (21-32) 04/05/21 22:23 Anion Gap 7.0 (3-11) 04/05/21 22:23 BUN 12 mg/dl (7-18) 04/05/21 22:23 Creatinine 1.22 mg/dl (0.6-1.4) 04/05/21 22:23 Est Cr Clr Drug Dosing 108.9 ml/min 04/05/21 22:23 Est GFR ( Amer) 86.6 ml/min 04/05/21 22:23 Est GFR (Non-Af Amer) 74.7 ml/min 04/05/21 22:23 BUN/Creatinine Ratio 9.4 (10-20) L 04/05/21 22:23 Glucose 181 mg/dl (70-99) H 04/05/21 22:23 Lactate 1.6 mmol/L (0.4-2.0) 04/06/21 00:10 Calcium 8.2 mg/dl (8.5-10.1) L 04/05/21 22:23 Magnesium 1.8 mg/dl (1.8-2.4) 04/05/21 22:23 Total Bilirubin 0.8 mg/dl (0.2-1) 04/05/21 22:23 AST 44 U/L (15-37) H 04/05/21 22:23 ALT 92 U/L (12-78) H 04/05/21 22:23 Alkaline Phosphatase 61 U/L (45-117) 04/05/21 22:23 Total Creatine Kinase 163 U/L (39-308) 04/05/21 22:23 Troponin I < 0.015 ng/ml (0-0.045) 04/05/21 22:23 Total Protein 6.2 gm/dl (6.4-8.2) L 04/05/21 22:23 Albumin 3.4 gm/dl (3.4-5.0) 04/05/21 22:23 Globulin 2.8 gm/dl (2.5-4.0) 04/05/21 22:23 Albumin/Globulin Ratio 1.2 (0.9-2) 04/05/21 22:23 Lipase 109 U/L (73-393) 04/05/21 22:23 TSH 1.290 uIu/ml (0.300-4.500) 09/01/21 22:23 Urine Color Yellow 04/06/21 00:00 Urine Appearance Clear (Clear) 04/06/21 00:00 Urine pH 6.0 (4.5-7.5) 04/06/21 00:00 Ur Specific [place] 1.027 (1.000-1.030) 04/06/21 00:00 Urine Protein Negative (Negative) 04/06/21 00:00 Urine Glucose (UA) Negative (Negative) 04/06/21 00:00 Urine Ketones Negative (Negative) 04/06/21 00:00 Urine Blood Negative (Negative) 04/06/21 00:00 Urine Nitrite Negative (Negative) 04/06/21 00:00 Urine Bilirubin Negative (Negative) 04/06/21 00:00 Urine Urobilinogen Negative (Negative) 04/06/21 00:00 Ur Leukocyte Esterase Negative (Negative) 04/06/21 00:00 COVID-19 Eval Order Covid19 at [facility] 04/05/21 23:35 SARS-CoV-2 (PCR) NEGATIVE (Negative) 04/05/21 23:35 Crossmatch See Detail 04/06/21 00:32 Diagnostic Findings [facility] Patient: CHRISTIAN VILLATORO (Male) : 84 Status: ER Date: 04/05/21 22:54 Room #: History: SYNCOPE Slices: 58 Priors: Tech: Adam Eden @ [phone] Exams: CT HEAD Contrast: Accession Numbers: [id number] Referring Physician: REFERRED SELF Preliminary Findings Only See Final Report For Complete Findings CT HEAD: Comparison 02/01/2015. No acute intracranial hemorrhage, edema or mass. No extra-axial fluid collection. No calvarial fracture. Visualized orbits, paranasal sinuses and mastoids are unremarkable. Radiologist: Ranjan Ibrahim M.D. Study ready at 22:57 and initial results transmitted at 23:23 *This report constitutes a preliminary interpretation only. Non-acute findings felt to be unrelated to the clinical presentation may not be discussed in this report. The study will be interpreted and a final report will be generated by the local Radiologist the following shift. To reach the hospital radiology department call [phone]. If a discrepancy is found between the preliminary and final interpretations of this study, please notify us via our Client Portal at [email or web address], [email or web address] [email or web address].You can also fax this report with a description of the discrepancy, or include the final report, to our daytime fax number [phone].If faxing, please indicate the severity of discrepancy using one of the following categories: [ ] 1 - Agree/Informational [ ] 2 - Unlikely to Affect Management [ ] 3 - Possible Eventual Change of Management [ ] 4 - Probable Immediate Change of Management For all other patient related information, please fax us at [phone]. [id number] [facility] Patient: CHRISTIAN VILLATORO (Male) : 84 Status: ER Date: 04/05/21 22:56 Room #: History: UPPER ABD PAIN Slices: [id number] Priors: Tech: KareyTrellt @ [phone] Exams: CT ABDOMEN & PELVIS Without Contrast Contrast: Accession Numbers: [id number] Referring Physician: REFERRED SELF Preliminary Findings Only See Final Report For Complete Findings CT ABDOMEN & PELVIS Without Contrast: Acute hemoperitoneum of indeterminate origin. This is predominantly around the spleen, caudal liver and within the pelvis. Hyperdense clot also seen in the right upper abdominal mesentery adjacent to the distal stomach and proximal transverse colon. Hepatic steatosis. Solid organs otherwise unremarkable within limits of noncontrast technique. Cholelithiasis. No biliary dilatation. No bowel obstruction. Unremarkable appendix. Colonic diverticulosis. No acute diverticulitis. No abscess or free air. 4 cm mixed lucent and sclerotic lesion in the proximal right femur. No acute osseous abnormality. Mild bibasilar atelectasis. Several bibasilar lung nodules measuring 3 mm. Radiologist: Ranjan Ibrahim M.D. Study ready at 23:01 and initial results transmitted at 23:31 Communications: Clear Time Type Notes 04/05/21 23:36 Call Doctor Regarding Massive hemoperitoneum, called Dr. Oconnell on 04/05 23:36 (-04:00) *This report constitutes a preliminary interpretation only. Non-acute findings felt to be unrelated to the clinical presentation may not be discussed in this report. The study will be interpreted and a final report will be generated by the local Radiologist the following shift. To reach the hospital radiology department call [phone]. If a discrepancy is found between the preliminary and final interpretations of this study, please notify us via our Client Portal at [email or web address], [email or web address].You can also fax this report with a description of the discrepancy, or include the final report, to our daytime fax number [phone].If faxing, please indicate the severity of discrepancy using one of the following categories: [ ] 1 - Agree/Informational [ ] 2 - Unlikely to Affect Management [ ] 3 - Possible Eventual Change of Management [ ] 4 - Probable Immediate Change of Management For all other patient related information, please fax us at [phone]. [id number] [facility] Patient: CHRISTIAN VILLATORO (Male) : 84 Status: ER Date: 04/05/21 23:24 Room #: History: UPPER ABD PAIN Slices: 853 Priors: Tech: Adam Eden @ [phone] Exams: CT ABDOMEN & PELVIS With Contrast Contrast: IV Amt: 92 Accession Numbers: [id number] Referring Physician: REFERRED SELF Preliminary Findings Only See Final Report For Complete Findings CT ABDOMEN & PELVIS With Contrast: Exam correlated with the earlier noncontrast study. Tiny bibasilar lung nodules and mild bibasilar atelectasis, as before. Persistent acute hemoperitoneum. Again this is most pronounced around the caudal liver, spleen and pelvis. Persistent hyperdense sentinel clots in the right upper abdominal mesentery and along the wall of the distal stomach which appears thickened. Suspect source of hemorrhage may be from the stomach given history of endoscopy with biopsies. Crescentic hyperdensity along the lateral wall of the proximal duodenum which could be a small focus of extravasation but this is not definite as hyperdense material was present in the gastric lumen on precontrast exam. No other areas of active extravasation identified. Enlarged spleen. No discrete splenic laceration identified. Solid organs are otherwise unremarkable without definite evidence for solid organ injury. Cholelithiasis, as before. No bowel obstruction. Unremarkable appendix. No free air. No acute osseous abnormality. 4 cm geographic mixed lucent and sclerotic lesion in the proximal right femur, as before. Radiologist: Ranjan Ibrahim M.D. Study ready at 23:34 and initial results transmitted at 23:53 *This report constitutes a preliminary interpretation only. Non-acute findings felt to be unrelated to the clinical presentation may not be discussed in this report. The study will be interpreted and a final report will be generated by the local Radiologist the following shift. To reach the hospital radiology department call [phone]. If a discrepancy is found between the preliminary and final interpretations of this study, please notify us via our Client Portal at [email or web address].You can also fax this report with a description of the discrepancy, or include the final report, to our daytime fax number [phone].If faxing, please indicate the severity of discrepancy using one of the following categories: [ ] 1 - Agree/Informational [ ] 2 - Unlikely to Affect Management [ ] 3 - Possible Eventual Change of Management [ ] 4 - Probable Immediate Change of Management For all other patient related information, please fax us at [phone]. [id number] Code Status & VTE Plan Code Status Full code VTE Prophylaxis Plan VTE Prophylaxis will be ordered: Yes Critical Care Time 35 minutes PG Care Time/CCT Total # of Minutes Spent Total Time Spent with Patient: Total time spent is greater than 50% in coordination of care (as documented) at patient's floor/unit and/or counseling patient: Coding Level of Care Code 33544 Initial Inpt Care Lvl 3 Diagnoses Hemoperitoneum K66.1 Transaminitis R74.01 Hypertension I10 Hyperglycemia R73.9 Neutrophilic leukocytosis D72.9
[2021-04-06] MEDS ORDERED: ICU PROTOCOL FOR HYPERGLYCEMIA PRN (01:45)
--- NOTE | 2021-04-06 01:45 | Critical Care Consultation ---
Date of Consultation April 06, 2021 Assessment & Plan (1) Hemoperitoneum: Impression: 40-year-old male presents to the ICU Neuro - [facility] ICU: Negative Cardiac - Syncopesuspect this is likely vagal response, appears to be improved with IV fluid resuscitation -Monitor HTNhold antihypertensives for now as patient had episode of hypotension and multiple episodes of syncope Respiratory - Lungs clear to auscultation, maintaining oxygen saturation on room air. No respiratory distress Continuous monitoring on pulse ox GI - Transaminitisliver ultrasound from January showed distended gallbladder with gallstones -Underwent liver biopsy this morning -LFTs stable -GI following -Monitor RENAL/LYTES - Creatinine within normal limits Routine BMPs and replete electrolytes as indicated - Strict I's and O's ENDO - No history of diabetes or thyroid disease ICU hyperglycemic protocol HEME - HemoperitoneumCT abdomen pelvis with contrast: Acute hemoperitoneum most pronounced around the caudal liver, spleen, and pelvis with persistent hyperdense sentinel clots in the right upper abdominal mesentery and along the wall of the distal stomach with suspected source of hemorrhage from stomach. -Patient evaluated by general surgery and currently no indication for surgical intervention at this time -Hemoglobin 13 with baseline of 14, monitor H&H every 4 hours for now. Currently no indication for transfusion -Coags within normal limits, platelets within normal limits -Fentanyl for pain relief -Monitor in ICU for now ID - Continue empiric Zosyn for now LINES/IV ACCESS - Peripheral IVs DVT PROPHYLAXIS - SCDs, holding anticoagulation in the setting of acute bleed Thank you for allowing us to participate in the care of this patient. Please refer to my attending physician's documentation for any further recommendations. (2) Syncope: (3) Abdominal pain: (4) Neutrophilic leukocytosis: (5) Gallstones: (6) Cough: (7) Transaminitis: (8) Hypertension: History of Present Illness Attending Physician: Jose Casillas MD History of Present Illness Mr. Lucia is a 40-year-old male with past medical history including hypertension, obesity, recent mononucleosis infection in January and transaminitis. 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 He did have a liver ultrasound earlier in January that showed gallbladder distention and was noted to have gallbladder sludge as well as gallstones. He underwent an upper endoscopy with GI earlier this morning where he had biopsies taken of his liver and was discharged home. Patient states that he was in pain but been told he might feel discomfort, however earlier this evening he was sitting in a recliner and became unconscious for approximately 45 to 60 seconds. Patient states that he had a another episode where he became unconscious in the car as well. Patient underwent CT scan of the abdomen and pelvis which showed an acute hemoperitoneum. He did have an episode of hypotension as well in the emergency department which improved with IV fluids. His hemoglobin was 13 with prior baseline 14. He u nderwent a repeat CT the abdomen with contrast in which most of the hemoperitoneum was concentrated around the caudal of the liver, spleen, and pelvis. Patient was evaluated by general surgery who felt the source of hemorrhage is resident stomach and there were no discrete splenic lacerations identified on CT imaging. His platelets and coags were within normal range. Patient now being admitted to ICU for close monitoring. On arrival to the ICU the patient is alert and oriented. He is currently hemodynamically stable without need for vasopressors and is normal sinus rhythm on monitor. He is maintaining oxygen saturation on room air without respiratory distress. Patient reports right upper quadrant abdominal pain which become significantly worse when he lays on his right side. He denies any further syncopal/fainting episodes. He does report having mono in January and February, but states that he has recently been in his baseline state of health. He denies any recent fevers, sore throat, cough, headaches, dizziness, shortness of breath, chest pain, nausea or vomiting, or diarrhea. 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 Surgical History H/O colonoscopy Pilonidal cyst Family History Father Coronary heart disease Hypertension Myocardial infarction Mother Hypertension Cancer skin Grandmother (Maternal) Myocardial infarction Heart disease Brother Hypertension Grandmother Heart disease Denies family history of Ovarian cancer Prostate cancer Breast cancer Colorectal cancer Social History Smoking Status: Never smoker Second Hand Exposure: No; Hx Alcohol Use: No Hx Substance Use: No Preferred Language: Ukrainian Beliefs That Will Affect Care: None marital status: Current Living Situation: Spouse current occupational status: employed 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 How many Children do You have: 2 Feels Safe at Home: Yes Assistive Devices: None Review of Systems Review of Systems: All systems reviewed & are unremarkable except as noted in HPI & below Physical Exam Constitutional: WD/WN, vitals as above Eyes: PERRL, conjunctivae normal, anicteric sclerae ENMT: external ear and nose normal, oropharynx normal Neck: trachea midline, no thyromegaly Respiratory: normal respiratory effort, lungs clear to auscultation Cardiovascular: RRR, no murmur, no edema Heart Sounds: normal S1 and normal S2 Gastrointestinal (Abdomen): Abdomen distended but not firm and tender in the right upper quadrant with palpation. Normal bowel sounds Musculoskeletal: no cyanosis or clubbing, extremities motor strength 5/5 Skin: no rashes, warm and dry Neurologic: PERRL, EOMI, accommodation nl, no face palsy, no dysarthria Psychiatric: A+Ox3, euthymic affect Results & Data Results & Data ([facility]) Vital Signs (Past 12 Hours) Vital Signs Temp Pulse Pulse Resp BP BP Pulse Ox 04/06/21 01:00 72 24 115/76 95 04/06/21 00:55 78 20 127/75 95 04/06/21 00:50 79 20 123/72 96 04/06/21 00:45 68 24 118/74 94 04/06/21 00:40 80 20 136/79 94 04/06/21 00:35 72 19 115/77 95 09/02/21 00:33 68 28 H 89/47 L 95 04/06/21 00:00 78 20 125/81 98 04/05/21 23:32 80 20 126/83 98 04/05/21 23:00 80 24 142/98 H 98 04/05/21 22:30 76 19 118/70 96 04/05/21 22:26 68 123/75 04/05/21 22:22 63 15 97/58 L 04/05/21 22:20 50 L 82/50 L 04/05/21 22:19 47 L 72/48 L 04/05/21 22:18 47 L 49 L 23 75/38 L 75/38 L 99 04/05/21 22:17 46 L 20 92/45 L 100 04/05/21 21:20 36.9 C 96 H 20 120/78 96 Coding Level of Care Code 95195 Inpt Consult Level 3 Diagnoses Hemoperitoneum K66.1 Syncope R55 Syncope type: unspecified Abdominal pain R10.10 Abdominal location: upper abdomen, unspecified Neutrophilic leukocytosis D72.9 Gallstones K80.20 Cough R05 Transaminitis R74.01 Hypertension I10 (1) Syncope Syncope type: unspecified Qualified Code(s): R55 - Syncope and collapse (2) Abdominal pain Abdominal location: upper abdomen, unspecified Qualified Code(s): R10.10 - Upper abdominal pain, unspecified
[2021-04-06] MEDS ORDERED: FAMOTIDINE 20 MG in SYRINGE 3 ML IV SCH (02:00)
[2021-04-06] MEDS: NSS + 20MEQ KCL 20 MEQ/1,000 ML BAG IV SCH ×2 (02:05→08:55)
--- NOTE | 2021-04-06 03:43 | Surgery Progress Note ---
Date of Service April 06, 2021 Assessment & Plan (1) Hemoperitoneum: Plan: Patient is resting comfortably Did receive some pain medication earlier Vital signs are stable with stable blood pressure Continue to monitor his H&H-consider transfusion as appropriate Admission and Anticipated Discharge Date Admission Date: April 06, 2021 Results & Data ([facility]) Vital Signs (Past 12 Hours) Vital Signs Temp Pulse Pulse Resp BP BP Pulse Ox 04/06/21 03:27 90 17 130/71 93 04/06/21 02:36 79 17 128/76 93 04/06/21 01:31 36.5 C 91 H 17 131/87 95 04/06/21 01:00 72 24 115/76 95 04/06/21 00:55 78 20 127/75 95 04/06/21 00:50 79 20 123/72 96 04/06/21 00:45 68 24 118/74 94 04/06/21 00:40 80 20 136/79 94 04/06/21 00:35 72 19 115/77 95 04/06/21 00:33 68 28 H 89/47 L 95 04/06/21 00:00 78 20 125/81 98 04/05/21 23:32 80 20 126/83 98 04/05/21 23:00 80 24 142/98 H 98 04/05/21 22:30 76 19 118/70 96 04/05/21 22:26 68 123/75 04/05/21 22:22 63 15 97/58 L 04/05/21 22:20 50 L 82/50 L 04/05/21 22:19 47 L 72/48 L 04/05/21 22:18 47 L 49 L 23 75/38 L 75/38 L 99 04/05/21 22:17 46 L 20 92/45 L 100 04/05/21 21:20 36.9 C 96 H 20 120/78 96 PG Care Time/CCT Total # of Minutes Spent Total Time Spent with Patient: Total time spent is greater than 50% in coordination of care (as documented) at patient's floor/unit and/or counseling patient: Coding Level of Care Code None Diagnoses Hemoperitoneum K66.1
[2021-04-06] MEDS ORDERED: fentaNYL citrate 100 MCG/2 ML VIAL IV STA (03:49)
[2021-04-06] MEDS ORDERED: fentaNYL citrate 100 MCG/2 ML VIAL IV PRN (03:49)
[2021-04-06 04:22] LABS: Hematocrit (blood only) 37.4 % (42-52); Hemoglobin 13.2 g/dL (14.0-18.0)
[2021-04-06 04:39] LABS: BUN Creatinine Ratio 9.6 (10-20); Calcium 7.8 mg/dl (8.5-10.1); Creatinine Clr Calc Pharmacy 114.9 ml/min; Est GFR (African American) 90.2 ml/min; Est GFR (Non-African American) 77.8 ml/min
[2021-04-06] MEDS: PIPERACILLIN/TAZOBACTAM 4.5 GM in DEXTROSE 5% 100 ML IV SCH ×3 (05:20→21:36)
--- NOTE | 2021-04-06 06:58 | Surgery Progress Note ---
Date of Service April 06, 2021 Assessment & Plan (1) Hemoperitoneum: Plan: See subjective description of plan Admission and Anticipated Discharge Date Admission Date: April 06, 2021 Subjective Patient awake and alert Having some mid abdominal pain Responding well to fentanyl His vital signs are stable His hematocrit is the same as the last drawn-stable We will continue to monitor his H&H Bedrest today We will add clear liquids and very slowly advance He will need very limited activity for several days in the hospital Review of Systems Review of Systems: All systems reviewed & are unremarkable except as noted in HPI & below Physical Exam Constitutional: WD/WN, vitals as above Eyes: PERRL, conjunctivae normal, anicteric sclerae ENMT: external ear and nose normal, oropharynx normal Neck: trachea midline, no thyromegaly Respiratory: normal respiratory effort, lungs clear to auscultation Cardiovascular: RRR, no murmur, no edema Heart Sounds: normal S1 and normal S2 Gastrointestinal (Abdomen): Abdomen distended but not firm and tender in the right upper quadrant with palpation. Normal bowel sounds Musculoskeletal: no cyanosis or clubbing, extremities motor strength 5/5 Skin: no rashes, warm and dry Neurologic: PERRL, EOMI, accommodation nl, no face palsy, no dysarthria Psychiatric: A+Ox3, euthymic affect Results & Data ([facility]) Vital Signs (Past 12 Hours) Vital Signs Temp Pulse Pulse Resp BP BP Pulse 04/06/21 06:00 84 17 122/72 04/06/21 05:00 86 18 117/73 04/06/21 04:00 36.4 C L 83 19 147/91 H 04/06/21 03:27 90 17 130/71 04/06/21 02:36 79 17 128/76 04/06/21 01:31 36.5 C 91 H 17 131/87 04/06/21 01:00 72 24 115/76 04/06/21 00:55 78 20 127/75 04/06/21 00:50 79 20 123/72 04/06/21 00:45 68 24 118/74 04/06/21 00:40 80 20 136/79 04/06/21 00:35 72 19 115/77 04/06/21 00:33 68 28 H 89/47 L 04/06/21 00:00 78 20 125/81 98 04/05/21 23:32 80 20 126/83 98 04/05/21 23:00 80 24 142/98 H 98 04/05/21 22:30 76 19 118/70 96 04/05/21 22:26 68 123/75 04/05/21 22:22 63 15 97/58 L 04/05/21 22:20 50 L 82/50 L 04/05/21 22:19 47 L 72/48 L 04/05/21 22:18 47 L 49 L 23 75/38 L 75/38 L 99 04/05/21 22:17 46 L 20 92/45 L 100 04/05/21 21:20 36.9 C 96 H 20 120/78 96 PG Care Time/CCT Total # of Minutes Spent Total Time Spent with Patient: Total time spent is greater than 50% in coordination of care (as documented) at patient's floor/unit and/or counseling patient: Coding Level of Care Code 70654 Inpt Consult Level 3 Diagnoses Hemoperitoneum K66.1
--- NOTE | 2021-04-06 07:27 | XRay Report ---
XR chest 1V portable CLINICAL HISTORY: Syncope. COMPARISON STUDY: Chest radiograph January 26, 2021. FINDINGS: Lung volumes are mildly diminished. There is no pneumothorax or pleural effusion. No eviden ce for pulmonary edema. Cardiac size is at the upper limits of normal. IMPRESSION: No acute cardiopulmonary findings. ACT 112: Negative or not required by law. Electronically signed by: Tru Chao M.D. 04/06/2021 7:26 AM
--- NOTE | 2021-04-06 07:48 | CT Scan Report ---
CT OF THE HEAD WITHOUT CONTRAST CLINICAL HISTORY: Syncope. COMPARISON STUDY: Head CT February 01, 2015. CT DOSE: 537.48 mGy.cm TECHNIQUE: Helical axial images of the head were obtained without IV contrast. Automated exposure con trol was utilized for the study. A dose lowering technique was utilized adhering to the principles o f ALARA. FINDINGS: No acute intracranial hemorrhage, midline shift or mass effect is present. The ventricular system is unremarkable. The basal cisterns are patent. No extra-axial collections are present. There are no findings to suggest acute dural sinus thrombosis or acute territorial infarct. No significant calvarial abnormalities are present. Visualized portions of the sinuses and mastoid air cells are aishwarya ar. IMPRESSION: No acute intracranial findings. ACT 112: Negative or not required by law. Electronically signed by: Tru Chao M.D. 04/06/2021 7:47 AM
--- NOTE | 2021-04-06 08:00 | Critical Care Progress Note ---
Date of Service April 06, 2021 Assessment & Plan (1) Hemoperitoneum: Plan: Impression: 40-year-old male presents to the ICU with hemoperitoneum s/p endoscopic US and EGD with biopsies performed 04/05/21. Neuro - No acute concerns. CAM ICU: Negative Cardiac - Syncope (on presentation) - Suspect this is likely vagal response, appears to be improved with IV fluid resuscitation. - No further syncopal episodes and dizziness/lightheadedness has resolved. - Monitor HTN - Hx of hypertension w/ anti-hypertensive home regimen consiting of amlodipine and HCTZ - Hold antihypertensives for now as patient had episode of hypotension and multiple episodes of syncope - Currently hemodynamically stable; BP 122/72. Will continue to monitor. Respiratory - - Lungs with diffuse crackles. Maintaining oxygen saturation on room air. No respiratory distress. - Encourage IS use - Continuous monitoring on pulse ox GI - Transaminitis liver ultrasound from January showed distended gallbladder with gallstones - Underwent an endoscopic ultrasound and EGD with biopsies including liver biopsy on 04/05/21 (day of presentation to ED/ICU) - GI consulted. Awaiting recommendations. - LFTs stable; will continue to monitor RENAL/LYTES - - Creatinine within normal limits - Routine BMPs and replete electrolytes as indicated - - No acute concerns - Continue strict I's and O's ENDO - - No history of diabetes or thyroid disease - ICU hyperglycemic protocol HEME - Hemoperitoneum - CT abdomen pelvis with contrast 04/05/21: Acute hemoperitoneum most pronounced around the caudal liver, spleen, and pelvis with persistent hyperdense sentinel clots in the right upper abdominal mesentery and along the wall of the distal stomach with suspected source of hemorrhage from stomach. - Patient evaluated by general surgery and currently no indication for surgical intervention at this time. - Continued abd pain w/ pain on deep inspiration. - Baseline Hgb 14; on admission, Hgb 13.4 and repeat this AM 12.4. Hemodyncamically stable. Currently no indication for transfusion. - Continue to monitor H&H q4h - Coags within normal limits, platelets within normal limits - Fentanyl discontinued. Continue pain control with morphine 2mg q4h prn. - Will continue to monitor in ICU for now. If Hgb continues to drop, would recommend transfer to tertiary care facility with IR. ID - - Neutrophilic leukocytosis. WBC this AM 16.93 - Patient remains afebrile. - Continue empiric Zosyn LINES/IV ACCESS - Peripheral IVs DVT PPX - SCDs, holding anticoagulation in the setting of acute bleed GI PPX: Protonix (2) Abdominal pain: (3) Neutrophilic leukocytosis: (4) Transaminitis: Admission and Anticipated Discharge Date Admission Date: April 06, 2021 Supervising Physician Co-Signing Physician Notes Dr. Croft was the resident-physician during care of patient. I separately evaluated patient for prince portions of the history and the exam. I was present during the critical portion of medical decision making, and I discussed the case with the resident. I generally agree with the findings and plan except for any additions/exceptions noted. Patient seen and examined at bedside. Does complain of abdominal discomfort still. No dizziness or lightheadedness after coming to the hospital. Denies any nausea or vomiting. No chest pain, no shortness of breath. Patient does complain of pain when he takes deep breath. He says that the pain shoots up to the shoulder bilaterally Constitutional: No acute distress HEENT: EOMI, PERRLA Respiratory system: Decreased air entry bilaterally, no wheeze, rhonchi, positive crackles bilaterally CVS: S1-S2 positive, no murmurs or gallops Abdomen: Soft, diffuse abdominal tenderness, no rebound, decreased bowel sounds x4 Extremities: +2 pulses bilaterally radialis/ dorsalis pedis, no cyanosis, no edema Neuro: Awake alert oriented x3 Psych: Normal mood and affect G/U: No Nazario --Prophylaxis VTE: IPC GI: Protonix Lines: Peripheral Diet: Clear liquids Plan: Pain on deep breaths going to the shoulder/scapula is likely from diaphragmatic irritation from the hemoperitoneum. Continue with pain medications. Incentive spirometry has been added Hemoglobin is trending down slowly. This could be secondary to the IV fluids that the patient has been getting Decrease the rate to 100 mL an hour change IV fluids to only normal saline Change pain medications from fentanyl to morphine 2 mg every 4 hours. If it is still uncontrolled can add Dilaudid 0.5 every 2 on top of this GI has been consulted to see if the patient needs to be transferred given the slow drop in the hemoglobin as well as abdominal tenderness Surgeon is also on board patient to be transferred Transaminitis is trending down. PT/INR within normal limit Leukocytosis likely reactive to the bleeding Continue with Zosyn for the time being for at least 48 hours. Hemoperitoneum is high risk of turning into infection. Please note the above document was generated using voice recognition software. It may contain grammatical, syntax or spelling errors.Any formal questions or concerns about the content, text or information contained within the body of this dictation should be directly addressed to the provider for clarification. Subjective Patient seen and evaluated at bedside this morning in room 110 with automotive diagnostic technician, Dr. Levy. Patient is awake and alert. He reports persistent mild diffuse abdominal pain. Reports difficulty with deep inspiration secondary to the abdominal pain. Denies dizziness, nausea, or vomiting. Denies hx of tobacco use, alcohol use, and has not taken pain medications recently. Review of Systems Constitutional: no fever and no chills Respiratory: no cough and no dyspnea Cardiovascular: no chest pain Gastrointestinal: + abdominal pain; no nausea and no vomiting Neurologic: no dizziness Physical Exam Physical Exam: Exam performed by automotive diagnostic technician, Dr. Levy GENERAL: No acute distress. Well developed and well nourished. Vital signs reviewed as above. EYES: EOMI. Anicteric sclerae. HENT: Moist mucous membranes. RESPIRATORY: Crackles bilateral lobes. No wheezing. CARDIOVASCULAR: Regular rate and rhythm. No murmurs. ABDOMEN: Soft, mild tenderness to palpation throughout abdomen. Difficulty with deep inspiraiton secondary to pain. No palpable masses. Decreased bowel sounds. No skin changes; no flank ecchymosis. EXTREMITIES: No edema. Non-tender. SKIN: Warm, dry. No rashes or lesions. NEUROLOGIC: No focal neurological deficits. PSYCHIATRIC: Cooperative. Appropriate mood and affect. Results & Data Results & Data ([facility]) Vital Signs (Past 12 Hours) Vital Signs Temp Pulse Pulse Resp BP BP Pulse Ox 04/06/21 06:00 84 17 122/72 93 04/06/21 05:00 86 18 117/73 04/06/21 04:00 36.4 C L 83 19 147/91 H 95 04/06/21 03:27 90 17 130/71 04/06/21 02:36 79 17 128/76 04/06/21 01:31 36.5 C 91 H 17 131/87 04/06/21 01:00 72 24 115/76 04/06/21 00:55 78 20 127/75 95 04/06/21 00:50 79 20 123/72 96 04/06/21 00:45 68 24 118/74 94 04/06/21 00:40 80 20 136/79 94 04/06/21 00:35 72 19 115/77 95 04/06/21 00:33 68 28 H 89/47 L 95 04/06/21 00:00 78 20 125/81 98 04/05/21 23:32 80 20 126/83 98 04/05/21 23:00 80 24 142/98 H 98 04/05/21 22:30 76 19 118/70 96 04/05/21 22:26 68 123/75 04/05/21 22:22 63 15 97/58 L 04/05/21 22:20 50 L 82/50 L 04/05/21 22:19 47 L 72/48 L 04/05/21 22:18 47 L 49 L 23 75/38 L 75/38 L 99 04/05/21 22:17 46 L 20 92/45 L 100 04/05/21 21:20 36.9 C 96 H 20 120/78 96 Laboratory Results 04/06/21 04/06/21 04/06/21 Range/Units 07:54 04:13 04:13 WBC 12.03 H (4.8-10.8) K/uL RBC 4.08 L (4.7-6.1) M/uL Hgb 12.4 L (14.0-18.0) g/dL Hct 35.3 L (42-52) % MCV 86.5 (80-100) fL MCH 30.4 (25-34) pg MCHC Pending (32-36) g/dL RDW Std Deviation 43.3 (36.4-46.3) fL RDW Coeff of Katty 13.6 (11.5-14.5) % Plt Count 165 (130-400) K/uL MPV 10.9 H (7.4-10.4) fL Immature Gran % (Auto) 0.2 % Neut % (Auto) 74.7 % Lymph % (Auto) 17.5 % [place] % (Auto) 6.8 % Eos % (Auto) 0.7 % Baso % (Auto) 0.1 % Neut # (Auto) 8.99 H (1.4-6.5) K/uL Lymph # (Auto) 2.10 (1.2-3.4) K/uL [place] # (Auto) 0.82 H (0.11-0.59) K/uL Eos # (Auto) 0.09 (0-0.5) K/uL Baso # (Auto) 0.01 (0-0.2) K/uL Immature Gran # (Auto) 0.02 (0.00-0.02) K/uL PT (9.0-12.0) Seconds INR (0.9-1.1) APTT (21.0-31.0) Seconds PTT Ratio Sodium 139 (136-145) mmol/L Potassium 4.0 (3.5-5.1) mmol/L Chloride 108 H (98-107) mmol/L Carbon Dioxide 26 (21-32) mmol/L Anion Gap 5.0 (3-11) BUN 11 (7-18) mg/dl Creatinine 1.18 (0.6-1.4) mg/dl Est Cr Clr Drug Dosing 114.9 ml/min Est GFR ( Amer) 90.2 ml/min Est GFR (Non-Af Amer) 77.8 ml/min BUN/Creatinine Ratio 9.6 L (10-20) Glucose 172 H (70-99) mg/dl Lactate (0.4-2.0) mmol/L Calcium 7.8 L (8.5-10.1) mg/dl Magnesium (1.8-2.4) mg/dl Total Bilirubin (0.2-1) mg/dl AST (15-37) U/L ALT (12-78) U/L Alkaline Phosphatase (45-117) U/L Total Creatine Kinase (39-308) U/L Troponin I (0-0.045) ng/ml Total Protein (6.4-8.2) gm/dl Albumin (3.4-5.0) gm/dl Globulin (2.5-4.0) gm/dl Albumin/Globulin Ratio (0.9-2) Lipase (73-393) U/L TSH (0.300-4.500) uIu/ml Urine Color Urine Appearance (Clear) Urine pH (4.5-7.5) Ur Specific [place] (1.000-1.030) Urine Protein (Negative) Urine Glucose (UA) (Negative) Urine Ketones (Negative) Urine Blood (Negative) Urine Nitrite (Negative) Urine Bilirubin (Negative) Urine Urobilinogen (Negative) Ur Leukocyte Esterase (Negative) Nasal Screen MRSA (PCR) (Negative) COVID-19 Eval Order SARS-CoV-2 (PCR) (Negative) Blood Type Blood Type Recheck O Positive Antibody Screen Crossmatch 04/06/21 04/06/21 04/06/21 Range/Units 04:13 01:45 00:32 WBC (4.8-10.8) K/uL RBC (4.7-6.1) M/uL Hgb 13.2 L (14.0-18.0) g/dL Hct 37.4 L (42-52) % MCV (80-100) fL MCH (25-34) pg MCHC (32-36) g/dL RDW Std Deviation (36.4-46.3) fL RDW Coeff of Katty (11.5-14.5) % Plt Count (130-400) K/uL MPV (7.4-10.4) fL Immature Gran % (Auto) % Neut % (Auto) % Lymph % (Auto) % [place] % (Auto) % Eos % (Auto) % Baso % (Auto) % Neut # (Auto) (1.4-6.5) K/uL Lymph # (Auto) (1.2-3.4) K/uL [place] # (Auto) (0.11-0.59) K/uL Eos # (Auto) (0-0.5) K/uL Baso # (Auto) (0-0.2) K/uL Immature Gran # (Auto) (0.00-0.02) K/uL PT (9.0-12.0) Seconds INR (0.9-1.1) APTT (21.0-31.0) Seconds PTT Ratio Sodium (136-145) mmol/L Potassium (3.5-5.1) mmol/L Chloride (98-107) mmol/L Carbon Dioxide (21-32) mmol/L Anion Gap (3-11) BUN (7-18) mg/dl Creatinine (0.6-1.4) mg/dl Est Cr Clr Drug Dosing ml/min Est GFR ( Amer) ml/min Est GFR (Non-Af Amer) ml/min BUN/Creatinine Ratio (10-20) Glucose (70-99) mg/dl Lactate (0.4-2.0) mmol/L Calcium (8.5-10.1) mg/dl Magnesium (1.8-2.4) mg/dl Total Bilirubin (0.2-1) mg/dl AST (15-37) U/L ALT (12-78) U/L Alkaline Phosphatase (45-117) U/L Total Creatine Kinase (39-308) U/L Troponin I (0-0.045) ng/ml Total Protein (6.4-8.2) gm/dl Albumin (3.4-5.0) gm/dl Globulin (2.5-4.0) gm/dl Albumin/Globulin Ratio (0.9-2) Lipase (73-393) U/L TSH (0.300-4.500) uIu/ml Urine Color Urine Appearance (Clear) Urine pH (4.5-7.5) Ur Specific [place] (1.000-1.030) Urine Protein (Negative) Urine Glucose (UA) (Negative) Urine Ketones (Negative) Urine Blood (Negative) Urine Nitrite (Negative) Urine Bilirubin (Negative) Urine Urobilinogen (Negative) Ur Leukocyte Esterase (Negative) Nasal Screen MRSA (PCR) Negative (Negative) COVID-19 Eval Order SARS-CoV-2 (PCR) (Negative) Blood Type O Positive Blood Type Recheck Antibody Screen NEGATIVE Crossmatch See Detail 04/06/21 04/06/21 04/06/21 Range/Units 00:32 00:12 00:10 WBC (4.8-10.8) K/uL RBC (4.7-6.1) M/uL Hgb 13.4 L (14.0-18.0) g/dL Hct 37.5 L (42-52) % MCV (80-100) fL MCH (25-34) pg MCHC (32-36) g/dL RDW Std Deviation (36.4-46.3) fL RDW Coeff of Katty (11.5-14.5) % Plt Count (130-400) K/uL MPV (7.4-10.4) fL Immature Gran % (Auto) % Neut % (Auto) % Lymph % (Auto) % [place] % (Auto) % Eos % (Auto) % Baso % (Auto) % Neut # (Auto) (1.4-6.5) K/uL Lymph # (Auto) (1.2-3.4) K/uL [place] # (Auto) (0.11-0.59) K/uL Eos # (Auto) (0-0.5) K/uL Baso # (Auto) (0-0.2) K/uL Immature Gran # (Auto) (0.00-0.02) K/uL PT 10.3 (9.0-12.0) Seconds INR 1.0 (0.9-1.1) APTT 23.9 (21.0-31.0) Seconds PTT Ratio 0.9 Sodium (136-145) mmol/L Potassium (3.5-5.1) mmol/L Chloride (98-107) mmol/L Carbon Dioxide (21-32) mmol/L Anion Gap (3-11) BUN (7-18) mg/dl Creatinine (0.6-1.4) mg/dl Est Cr Clr Drug Dosing ml/min Est GFR ( Amer) ml/min Est GFR (Non-Af Amer) ml/min BUN/Creatinine Ratio (10-20) Glucose (70-99) mg/dl Lactate 1.6 (0.4-2.0) mmol/L Calcium (8.5-10.1) mg/dl Magnesium (1.8-2.4) mg/dl Total Bilirubin (0.2-1) mg/dl AST (15-37) U/L ALT (12-78) U/L Alkaline Phosphatase (45-117) U/L Total Creatine Kinase (39-308) U/L Troponin I (0-0.045) ng/ml Total Protein (6.4-8.2) gm/dl Albumin (3.4-5.0) gm/dl Globulin (2.5-4.0) gm/dl Albumin/Globulin Ratio (0.9-2) Lipase (73-393) U/L TSH (0.300-4.500) uIu/ml Urine Color Urine Appearance (Clear) Urine pH (4.5-7.5) Ur Specific [place] (1.000-1.030) Urine Protein (Negative) Urine Glucose (UA) (Negative) Urine Ketones (Negative) Urine Blood (Negative) Urine Nitrite (Negative) Urine Bilirubin (Negative) Urine Urobilinogen (Negative) Ur Leukocyte Esterase (Negative) Nasal Screen MRSA (PCR) (Negative) COVID-19 Eval Order SARS-CoV-2 (PCR) (Negative) Blood Type Blood Type Recheck Antibody Screen Crossmatch 04/06/21 04/05/21 04/05/21 Range/Units 00:00 23:35 23:35 WBC (4.8-10.8) K/uL RBC (4.7-6.1) M/uL Hgb (14.0-18.0) g/dL Hct (42-52) % MCV (80-100) fL MCH (25-34) pg MCHC (32-36) g/dL RDW Std Deviation (36.4-46.3) fL RDW Coeff of Katty (11.5-14.5) % Plt Count (130-400) K/uL MPV (7.4-10.4) fL Immature Gran % (Auto) % Neut % (Auto) % Lymph % (Auto) % [place] % (Auto) % Eos % (Auto) % Baso % (Auto) % Neut # (Auto) (1.4-6.5) K/uL Lymph # (Auto) (1.2-3.4) K/uL [place] # (Auto) (0.11-0.59) K/uL Eos # (Auto) (0-0.5) K/uL Baso # (Auto) (0-0.2) K/uL Immature Gran # (Auto) (0.00-0.02) K/uL PT (9.0-12.0) Seconds INR (0.9-1.1) APTT (21.0-31.0) Seconds PTT Ratio Sodium (136-145) mmol/L Potassium (3.5-5.1) mmol/L Chloride (98-107) mmol/L Carbon Dioxide (21-32) mmol/L Anion Gap (3-11) BUN (7-18) mg/dl Creatinine (0.6-1.4) mg/dl Est Cr Clr Drug Dosing ml/min Est GFR ( Amer) ml/min Est GFR (Non-Af Amer) ml/min BUN/Creatinine Ratio (10-20) Glucose (70-99) mg/dl Lactate (0.4-2.0) mmol/L Calcium (8.5-10.1) mg/dl Magnesium (1.8-2.4) mg/dl Total Bilirubin (0.2-1) mg/dl AST (15-37) U/L ALT (12-78) U/L Alkaline Phosphatase (45-117) U/L Total Creatine Kinase (39-308) U/L Troponin I (0-0.045) ng/ml Total Protein (6.4-8.2) gm/dl Albumin (3.4-5.0) gm/dl Globulin (2.5-4.0) gm/dl Albumin/Globulin Ratio (0.9-2) Lipase (73-393) U/L TSH (0.300-4.500) uIu/ml Urine Color Yellow Urine Appearance Clear (Clear) Urine pH 6.0 (4.5-7.5) Ur Specific [place] 1.027 (1.000-1.030) Urine Protein Negative (Negative) Urine Glucose (UA) Negative (Negative) Urine Ketones Negative (Negative) Urine Blood Negative (Negative) Urine Nitrite Negative (Negative) Urine Bilirubin Negative (Negative) Urine Urobilinogen Negative (Negative) Ur Leukocyte Esterase Negative (Negative) Nasal Screen MRSA (PCR) (Negative) COVID-19 Eval Order Covid19 at [facility] SARS-CoV-2 (PCR) NEGATIVE (Negative) Blood Type Blood Type Recheck Antibody Screen Crossmatch 04/05/21 04/05/21 Range/Units 22:23 22:23 WBC 16.93 H (4.8-10.8) K/uL RBC 4.61 L (4.7-6.1) M/uL Hgb 14.1 (14.0-18.0) g/dL Hct 39.6 L (42-52) % MCV 85.9 (80-100) fL MCH 30.6 (25-34) pg MCHC 35.6 (32-36) g/dL RDW Std Deviation 42.1 (36.4-46.3) fL RDW Coeff of Katty 13.3 (11.5-14.5) % Plt Count 196 (130-400) K/uL MPV 11.5 H (7.4-10.4) fL Immature Gran % (Auto) 0.4 % Neut % (Auto) 74.7 % Lymph % (Auto) 17.2 % [place] % (Auto) 6.4 % Eos % (Auto) 1.1 % Baso % (Auto) 0.2 % Neut # (Auto) 12.67 H (1.4-6.5) K/uL Lymph # (Auto) 2.91 (1.2-3.4) K/uL [place] # (Auto) 1.08 H (0.11-0.59) K/uL Eos # (Auto) 0.18 (0-0.5) K/uL Baso # (Auto) 0.03 (0-0.2) K/uL Immature Gran # (Auto) 0.06 H (0.00-0.02) K/uL PT (9.0-12.0) Seconds INR (0.9-1.1) APTT (21.0-31.0) Seconds PTT Ratio Sodium 138 (136-145) mmol/L Potassium 3.6 (3.5-5.1) mmol/L Chloride 106 (98-107) mmol/L Carbon Dioxide 26 (21-32) mmol/L Anion Gap 7.0 (3-11) BUN 12 (7-18) mg/dl Creatinine 1.22 (0.6-1.4) mg/dl Est Cr Clr Drug Dosing 108.9 ml/min Est GFR ( Amer) 86.6 ml/min Est GFR (Non-Af Amer) 74.7 ml/min BUN/Creatinine Ratio 9.4 L (10-20) Glucose 181 H (70-99) mg/dl Lactate (0.4-2.0) mmol/L Calcium 8.2 L (8.5-10.1) mg/dl Magnesium 1.8 (1.8-2.4) mg/dl Total Bilirubin 0.8 (0.2-1) mg/dl AST 44 H (15-37) U/L ALT 92 H (12-78) U/L Alkaline Phosphatase 61 (45-117) U/L Total Creatine Kinase 163 (39-308) U/L Troponin I < 0.015 (0-0.045) ng/ml Total Protein 6.2 L (6.4-8.2) gm/dl Albumin 3.4 (3.4-5.0) gm/dl Globulin 2.8 (2.5-4.0) gm/dl Albumin/Globulin Ratio 1.2 (0.9-2) Lipase 109 (73-393) U/L TSH 1.290 (0.300-4.500) uIu/ml Urine Color Urine Appearance (Clear) Urine pH (4.5-7.5) Ur Specific [place] (1.000-1.030) Urine Protein (Negative) Urine Glucose (UA) (Negative) Urine Ketones (Negative) Urine Blood (Negative) Urine Nitrite (Negative) Urine Bilirubin (Negative) Urine Urobilinogen (Negative) Ur Leukocyte Esterase (Negative) Nasal Screen MRSA (PCR) (Negative) COVID-19 Eval Order SARS-CoV-2 (PCR) (Negative) Blood Type Blood Type Recheck Antibody Screen Crossmatch Resident Activity Tracking Resident Involvement: Resident Care Provided Care Provided: Adult Hospital Medicine (1) Abdominal pain Abdominal location: upper abdomen, unspecified Qualified Code(s): R10.10 - Upper abdominal pain, unspecified
[2021-04-06 08:07] LABS: Basophils # (auto) 0.01 K/uL (0-0.2); Basophils % (auto) 0.1 %; Eosinophils # (auto) 0.09 K/uL (0-0.5); Eosinophils % (auto) 0.7 %; Hematocrit (blood only) 35.3 % (42-52); Hemoglobin 12.4 g/dL (14.0-18.0); Immature Granulocytes # (auto) 0.02 K/uL (0.00-0.02); Immature Granulocytes % (auto) 0.2 %; Lymphocytes % (auto) 17.5 %; Mean Corpuscular Hemoglobin 30.4 pg (25-34); Mean Corpuscular Volume 86.5 fL (80-100); Mean Platelet Volume 10.9 fL (7.4-10.4); Monocytes # (auto) 0.82 K/uL (0.11-0.59); Monocytes % (auto) 6.8 %; Neutrophils # (auto) 8.99 K/uL (1.4-6.5); Neutrophils % (auto) 74.7 %; Platelet Count 165 K/uL (130-400); RDW Coefficient of Variation 13.6 % (11.5-14.5); RDW Standard Deviation 43.3 fL (36.4-46.3); Red Blood Count 4.08 M/uL (4.7-6.1); White Blood Count 12.03 K/uL (4.8-10.8)
--- NOTE | 2021-04-06 08:08 | CT Scan Report ---
CT OF THE ABDOMEN AND PELVIS WITH CONTRAST CLINICAL HISTORY: Upper abdominal pain. COMPARISON STUDY: CT of the abdomen and pelvis April 05, 2021 11:01 PM. Right upper quadrant ultr asound January 26, 2021. TECHNIQUE: Following IV administration of 92 mL of Optiray, axial images of the abdomen and pelvis we re obtained from the lung bases to the proximal femurs. Images were reviewed in the axial, sagittal, and coronal planes. IV contrast was administered without complication. Automated exposure control wa s utilized for the study. A dose lowering technique was utilized adhering to the principles of ALARA . CT DOSE: 1648.83 mGy.cm FINDINGS: Lung bases are unremarkable. No pneumatosis, free air or portal venous gas is present. Ther e is moderate hemoperitoneum. This is similar to CT performed at 11:02 PM tonight. The clot is denses t along the inferior aspect of the right hepatic lobe as well as adjacent to the distal stomach and d uodenum. No hepatic laceration is identified. There is no active extravasation. Mild splenomegaly is noted. There is hepatic steatosis. There are no hepatic lesions. There is a gallstone within the gall bladder. There is no hydronephrosis. There is also hemoperitoneum within the pelvis. The source is li donna within the upper abdomen. No acute fracture is identified within visualized skeletal structures. 3.8 cm mixed lucent and sclerotic lesion within the right femoral neck is indeterminate but does not have aggressive imaging characteristics. This is likely benign. IMPRESSION: 1. Moderate hemoperitoneum, similar to CT performed earlier tonight. No active extravasation. No defi nitive source for bleeding however primary considerations include the liver or the distal stomach/duo denum. 2. Hepatic steatosis. No hepatic laceration identified. 3. Mild splenomegaly. ACT 112: Negative or not required by law. Electronically signed by: Tru Chao M.D. 04/06/2021 8:07 AM
--- NOTE | 2021-04-06 08:22 | CT Scan Report ---
ABDOMEN AND PELVIS CT WITHOUT CONTRAST CT DOSE: 1848.21 mGy.cm HISTORY: Upper abdominal pain. Recent endoscopy. TECHNIQUE: Multiaxial CT images of the abdomen and pelvis were performed without contrast. A dose lo wering technique was utilized adhering to the principles of ALARA. COMPARISON STUDY: None. FINDINGS: A punctate calcified granuloma and mild dependent changes seen within the lower lobes. No p neumoperitoneum. No pneumatosis. A 3.8 cm mixed sclerotic and lucent lesion within the proximal right femur. Deformity within the right anterior iliac wing may be due to old posttraumatic changes. No ac [place] fractures within the visualized osseous structures. There is a 6 mm gallstone. No gallbladder wal l thickening. The unenhanced pancreas, adrenal glands, and kidneys are unremarkable. No hydronephrosi s. No retroperitoneal lymphadenopathy. Normal caliber abdominal aorta. The bladder is unremarkable. C olonic diverticulosis. No evidence for acute diverticulitis. No bowel wall thickening or obstruction. Normal appendix. There is a moderate amount of hemoperitoneum seen within the pelvis. There is also a moderate amount of hemoperitoneum surrounding the spleen and a few additional areas of hemorrhage a long the undersurface of the liver and right upper quadrant mesentery surrounding the duodenal bulb w hich could represent a hyperdense clot sign. Therefore, this could represent the location of the blee d. However, the exact location of the bleed is not confirmed on this study. There is a heterogeneous appearance to the right inferior hepatic lobe on image 214 which could represent subcapsular hemorrha ge or intraparenchymal hemorrhage/injury. This could also be the location of the bleed. IMPRESSION: 1. Moderate amount of hemoperitoneum seen within the pelvis, surrounding the spleen, and along the un dersurface of the liver. There is hyperdense clot seen along the undersurface of the liver, surroundi ng the expected location of the duodenal bulb, and within the right upper quadrant mesentery. This fa vors the origin of the bleed and therefore could be associated with the duodenal bulb, mesentery, or liver. However, the exact origin of the bleed is is not clearly demonstrated on this examination. 2. No pneumoperitoneum to suggest bowel perforation. 3. Additional findings as described above. ACT 112: Negative or not required by law. Electronically signed by: Bhupinder Mckenna M.D. 04/06/2021 8:21 AM
[2021-04-06] MEDS ORDERED: MoRPHine SULFATE 2 MG/ML CARP IV PRN (08:30)
[2021-04-06 09:03] LABS: Mean Corpuscular Hgb Conc 35.1 g/dL (32-36)
--- NOTE | 2021-04-06 09:17 | Gastrointestinal Consultation ---
Date of Consultation April 06, 2021 Assessment & Plan (1) Hemoperitoneum: 40 year old male with pain post EGD/EUS-LB, CT imaging shows moderate amount of hemoperitoneum seen within the pelvis, surrounding the spleen. HGB on admission was 14, this AM 12.4. No evidence of black/bloody stools or emesis Agree with transfer for IR services No acute indication for endoscopic procedure Appreciate general surgery input until transfer is obtained Continue with conservative management Thank you for allowing us to participate in the care of this patient. Please call with any acute changes, questions or concerns. Please see addendum below with additional recommendation from my supervising physician. Supervising Physician Co-Signing Physician Notes 40 yo male with a history of being followed by [facility] as an outpatient, referred from [facility] to [facility] for an eus-liver biopsy that was performed yesterday at [facility]. Dc'd home, then came in thru the ER for pain, imaging showing hemoperitoneum. This am- he is in the icu, 1 gram drop in hgb, abdominal pain all over. PE - slightly tender in upper abdomen and lower abdomen Hgb reviewed, Bun reviewed Discussed with Dr. Gunter - recommendation from GI is transfer to a tertiary center with IR capability if he has continued issues with bleeding. The patien expressed understanding and seemed okay with this plan. History of Present Illness Reason for Consultation: abd pain, post liver bx Requesting Physician: Kaz Attending Physician: Amari Mccurdy, DO History of Present Illness 40 year old male followed by [facility] who was referred to [facility] for EUS- LB. Procedure completed yesterday, unremarkable. EGD w/ gastritis otherwise unremarkable, EUS w/ fatty liver, gallstones and LB obtained. Post-procedure had abd pain which persisted leading to ED admission. Abd pain is generalized. No nausea, vomiting. No black/bloody stools. No fever, chills, CP, SOB. CTAP: Moderate hemoperitoneum, similar to CT performed earlier tonight. No active extravasation. No definitive source for bleeding however primary considerations include the liver or the distal stomach/duodenum.Hepatic steatosis. No hepatic laceration identified. Mild splenomegaly. CTAP: Moderate amount of hemoperitoneum seen within the pelvis, surrounding the spleen, and along the undersurface of the liver. There is hyperdense clot seen along the undersurface of the liver, surrounding the expected location of the duodenal bulb, and within the right upper quadrant mesentery. This favors the origin of the bleed and therefore could be associated with the duodenal bulb, mesentery, or liver. However, the exact origin of the bleed is is not clearly demonstrated on this examination.No pneumoperitoneum to suggest bowel perforation. Additional findings as described above. 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 Surgical History H/O colonoscopy Pilonidal cyst Family History Father Coronary heart disease Hypertension Myocardial infarction Mother Hypertension Cancer skin Grandmother (Maternal) Myocardial infarction Heart disease Brother Hypertension Grandmother Heart disease Denies family history of Ovarian cancer Prostate cancer Breast cancer Colorectal cancer Social History Smoking Status: Never smoker Second Hand Exposure: No; Hx Alcohol Use: No Hx Substance Use: No Preferred Language: Malay Beliefs That Will Affect Care: None marital status: Current Living Situation: Spouse current occupational status: employed 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 How many Children do You have: 2 Feels Safe at Home: Yes Assistive Devices: None Review of Systems Review of Systems: All systems reviewed & are unremarkable except as noted in HPI & below Physical Exam Constitutional: WD/WN, vitals as above Neck: trachea midline Respiratory: normal respiratory effort, lungs clear to auscultation Cardiovascular: Rate/Rhythm: regular rhythm and + tachycardic Gastrointestinal (Abdomen): normal bowel sounds, soft, nontender, no hepatosplenomegaly Skin: no rashes, warm and dry Results & Data ([facility]) Vital Signs (Past 12 Hours) Vital Signs Temp Pulse Pulse Resp BP BP Pulse Ox 04/06/21 06:00 84 17 122/72 93 04/06/21 05:00 86 18 117/73 93 04/06/21 04:00 36.4 C L 83 19 147/91 H 95 04/06/21 03:27 90 17 130/71 93 04/06/21 02:36 79 17 128/76 93 04/06/21 01:31 36.5 C 91 H 17 131/87 95 04/06/21 01:00 72 24 115/76 95 04/06/21 00:55 78 20 127/75 95 04/06/21 00:50 79 20 123/72 96 04/06/21 00:45 68 24 118/74 94 04/06/21 00:40 80 20 136/79 94 04/06/21 00:35 72 19 115/77 95 04/06/21 00:33 68 28 H 89/47 L 95 04/06/21 00:00 78 20 125/81 98 04/05/21 23:32 80 20 126/83 98 04/05/21 23:00 80 24 142/98 H 98 04/05/21 22:30 76 19 118/70 96 04/05/21 22:26 68 123/75 04/05/21 22:22 63 15 97/58 L 04/05/21 22:20 50 L 82/50 L 04/05/21 22:19 47 L 72/48 L 04/05/21 22:18 47 L 49 L 23 75/38 L 75/38 L 99 04/05/21 22:17 46 L 20 92/45 L 100 04/05/21 21:20 36.9 C 96 H 20 120/78 96 Diagnostic Findings 04/06/21 04/06/21 04/06/21 Range/Units 07:54 04:13 04:13 WBC 12.03 H (4.8-10.8) K/uL RBC 4.08 L (4.7-6.1) M/uL Hgb 12.4 L (14.0-18.0) g/dL Hct 35.3 L (42-52) % MCV 86.5 (80-100) fL MCH 30.4 (25-34) pg MCHC 35.1 (32-36) g/dL RDW Std Deviation 43.3 (36.4-46.3) fL RDW Coeff of Katty 13.6 (11.5-14.5) % Plt Count 165 (130-400) K/uL MPV 10.9 H (7.4-10.4) fL Immature Gran % (Auto) 0.2 % Neut % (Auto) 74.7 % Lymph % (Auto) 17.5 % [place] % (Auto) 6.8 % Eos % (Auto) 0.7 % Baso % (Auto) 0.1 % Neut # (Auto) 8.99 H (1.4-6.5) K/uL Lymph # (Auto) 2.10 (1.2-3.4) K/uL [place] # (Auto) 0.82 H (0.11-0.59) K/uL Eos # (Auto) 0.09 (0-0.5) K/uL Baso # (Auto) 0.01 (0-0.2) K/uL Immature Gran # (Auto) 0.02 (0.00-0.02) K/uL PT (9.0-12.0) Seconds INR (0.9-1.1) APTT (21.0-31.0) Seconds PTT Ratio Sodium 139 (136-145) mmol/L Potassium 4.0 (3.5-5.1) mmol/L Chloride 108 H (98-107) mmol/L Carbon Dioxide 26 (21-32) mmol/L Anion Gap 5.0 (3-11) BUN 11 (7-18) mg/dl Creatinine 1.18 (0.6-1.4) mg/dl Est Cr Clr Drug Dosing 114.9 ml/min Est GFR ( Amer) 90.2 ml/min Est GFR (Non-Af Amer) 77.8 ml/min BUN/Creatinine Ratio 9.6 L (10-20) Glucose 172 H (70-99) mg/dl Lactate (0.4-2.0) mmol/L Calcium 7.8 L (8.5-10.1) mg/dl Magnesium (1.8-2.4) mg/dl Total Bilirubin (0.2-1) mg/dl AST (15-37) U/L ALT (12-78) U/L Alkaline Phosphatase (45-117) U/L Total Creatine Kinase (39-308) U/L Troponin I (0-0.045) ng/ml Total Protein (6.4-8.2) gm/dl Albumin (3.4-5.0) gm/dl Globulin (2.5-4.0) gm/dl Albumin/Globulin Ratio (0.9-2) Lipase (73-393) U/L TSH (0.300-4.500) uIu/ml Urine Color Urine Appearance (Clear) Urine pH (4.5-7.5) Ur Specific [place] (1.000-1.030) Urine Protein (Negative) Urine Glucose (UA) (Negative) Urine Ketones (Negative) Urine Blood (Negative) Urine Nitrite (Negative) Urine Bilirubin (Negative) Urine Urobilinogen (Negative) Ur Leukocyte Esterase (Negative) Nasal Screen MRSA (PCR) (Negative) COVID-19 Eval Order SARS-CoV-2 (PCR) (Negative) Blood Type Blood Type Recheck O Positive Antibody Screen Crossmatch 04/06/21 04/06/21 04/06/21 Range/Units 04:13 01:45 00:32 WBC (4.8-10.8) K/uL RBC (4.7-6.1) M/uL Hgb 13.2 L (14.0-18.0) g/dL Hct 37.4 L (42-52) % MCV (80-100) fL MCH (25-34) pg MCHC (32-36) g/dL RDW Std Deviation (36.4-46.3) fL RDW Coeff of Katty (11.5-14.5) % Plt Count (130-400) K/uL MPV (7.4-10.4) fL Immature Gran % (Auto) % Neut % (Auto) % Lymph % (Auto) % [place] % (Auto) % Eos % (Auto) % Baso % (Auto) % Neut # (Auto) (1.4-6.5) K/uL Lymph # (Auto) (1.2-3.4) K/uL [place] # (Auto) (0.11-0.59) K/uL Eos # (Auto) (0-0.5) K/uL Baso # (Auto) (0-0.2) K/uL Immature Gran # (Auto) (0.00-0.02) K/uL PT (9.0-12.0) Seconds INR (0.9-1.1) APTT (21.0-31.0) Seconds PTT Ratio Sodium (136-145) mmol/L Potassium (3.5-5.1) mmol/L Chloride (98-107) mmol/L Carbon Dioxide (21-32) mmol/L Anion Gap (3-11) BUN (7-18) mg/dl Creatinine (0.6-1.4) mg/dl Est Cr Clr Drug Dosing ml/min Est GFR ( Amer) ml/min Est GFR (Non-Af Amer) ml/min BUN/Creatinine Ratio (10-20) Glucose (70-99) mg/dl Lactate (0.4-2.0) mmol/L Calcium (8.5-10.1) mg/dl Magnesium (1.8-2.4) mg/dl Total Bilirubin (0.2-1) mg/dl AST (15-37) U/L ALT (12-78) U/L Alkaline Phosphatase (45-117) U/L Total Creatine Kinase (39-308) U/L Troponin I (0-0.045) ng/ml Total Protein (6.4-8.2) gm/dl Albumin (3.4-5.0) gm/dl Globulin (2.5-4.0) gm/dl Albumin/Globulin Ratio (0.9-2) Lipase (73-393) U/L TSH (0.300-4.500) uIu/ml Urine Color Urine Appearance (Clear) Urine pH (4.5-7.5) Ur Specific [place] (1.000-1.030) Urine Protein (Negative) Urine Glucose (UA) (Negative) Urine Ketones (Negative) Urine Blood (Negative) Urine Nitrite (Negative) Urine Bilirubin (Negative) Urine Urobilinogen (Negative) Ur Leukocyte Esterase (Negative) Nasal Screen MRSA (PCR) Negative (Negative) COVID-19 Eval Order SARS-CoV-2 (PCR) (Negative) Blood Type O Positive Blood Type Recheck Antibody Screen NEGATIVE Crossmatch See Detail 04/06/21 04/06/21 04/06/21 Range/Units 00:32 00:12 00:10 WBC (4.8-10.8) K/uL RBC (4.7-6.1) M/uL Hgb 13.4 L (14.0-18.0) g/dL Hct 37.5 L (42-52) % MCV (80-100) fL MCH (25-34) pg MCHC (32-36) g/dL RDW Std Deviation (36.4-46.3) fL RDW Coeff of Katty (11.5-14.5) % Plt Count (130-400) K/uL MPV (7.4-10.4) fL Immature Gran % (Auto) % Neut % (Auto) % Lymph % (Auto) % [place] % (Auto) % Eos % (Auto) % Baso % (Auto) % Neut # (Auto) (1.4-6.5) K/uL Lymph # (Auto) (1.2-3.4) K/uL [place] # (Auto) (0.11-0.59) K/uL Eos # (Auto) (0-0.5) K/uL Baso # (Auto) (0-0.2) K/uL Immature Gran # (Auto) (0.00-0.02) K/uL PT 10.3 (9.0-12.0) Seconds INR 1.0 (0.9-1.1) APTT 23.9 (21.0-31.0) Seconds PTT Ratio 0.9 Sodium (136-145) mmol/L Potassium (3.5-5.1) mmol/L Chloride (98-107) mmol/L Carbon Dioxide (21-32) mmol/L Anion Gap (3-11) BUN (7-18) mg/dl Creatinine (0.6-1.4) mg/dl Est Cr Clr Drug Dosing ml/min Est GFR ( Amer) ml/min Est GFR (Non-Af Amer) ml/min BUN/Creatinine Ratio (10-20) Glucose (70-99) mg/dl Lactate 1.6 (0.4-2.0) mmol/L Calcium (8.5-10.1) mg/dl Magnesium (1.8-2.4) mg/dl Total Bilirubin (0.2-1) mg/dl AST (15-37) U/L ALT (12-78) U/L Alkaline Phosphatase (45-117) U/L Total Creatine Kinase (39-308) U/L Troponin I (0-0.045) ng/ml Total Protein (6.4-8.2) gm/dl Albumin (3.4-5.0) gm/dl Globulin (2.5-4.0) gm/dl Albumin/Globulin Ratio (0.9-2) Lipase (73-393) U/L TSH (0.300-4.500) uIu/ml Urine Color Urine Appearance (Clear) Urine pH (4.5-7.5) Ur Specific [place] (1.000-1.030) Urine Protein (Negative) Urine Glucose (UA) (Negative) Urine Ketones (Negative) Urine Blood (Negative) Urine Nitrite (Negative) Urine Bilirubin (Negative) Urine Urobilinogen (Negative) Ur Leukocyte Esterase (Negative) Nasal Screen MRSA (PCR) (Negative) COVID-19 Eval Order SARS-CoV-2 (PCR) (Negative) Blood Type Blood Type Recheck Antibody Screen Crossmatch 04/06/21 04/05/21 04/05/21 Range/Units 00:00 23:35 23:35 WBC (4.8-10.8) K/uL RBC (4.7-6.1) M/uL Hgb (14.0-18.0) g/dL Hct (42-52) % MCV (80-100) fL MCH (25-34) pg MCHC (32-36) g/dL RDW Std Deviation (36.4-46.3) fL RDW Coeff of Katty (11.5-14.5) % Plt Count (130-400) K/uL MPV (7.4-10.4) fL Immature Gran % (Auto) % Neut % (Auto) % Lymph % (Auto) % [place] % (Auto) % Eos % (Auto) % Baso % (Auto) % Neut # (Auto) (1.4-6.5) K/uL Lymph # (Auto) (1.2-3.4) K/uL [place] # (Auto) (0.11-0.59) K/uL Eos # (Auto) (0-0.5) K/uL Baso # (Auto) (0-0.2) K/uL Immature Gran # (Auto) (0.00-0.02) K/uL PT (9.0-12.0) Seconds INR (0.9-1.1) APTT (21.0-31.0) Seconds PTT Ratio Sodium (136-145) mmol/L Potassium (3.5-5.1) mmol/L Chloride (98-107) mmol/L Carbon Dioxide (21-32) mmol/L Anion Gap (3-11) BUN (7-18) mg/dl Creatinine (0.6-1.4) mg/dl Est Cr Clr Drug Dosing ml/min Est GFR ( Amer) ml/min Est GFR (Non-Af Amer) ml/min BUN/Creatinine Ratio (10-20) Glucose (70-99) mg/dl Lactate (0.4-2.0) mmol/L Calcium (8.5-10.1) mg/dl Magnesium (1.8-2.4) mg/dl Total Bilirubin (0.2-1) mg/dl AST (15-37) U/L ALT (12-78) U/L Alkaline Phosphatase (45-117) U/L Total Creatine Kinase (39-308) U/L Troponin I (0-0.045) ng/ml Total Protein (6.4-8.2) gm/dl Albumin (3.4-5.0) gm/dl Globulin (2.5-4.0) gm/dl Albumin/Globulin Ratio (0.9-2) Lipase (73-393) U/L TSH (0.300-4.500) uIu/ml Urine Color Yellow Urine Appearance Clear (Clear) Urine pH 6.0 (4.5-7.5) Ur Specific [place] 1.027 (1.000-1.030) Urine Protein Negative (Negative) Urine Glucose (UA) Negative (Negative) Urine Ketones Negative (Negative) Urine Blood Negative (Negative) Urine Nitrite Negative (Negative) Urine Bilirubin Negative (Negative) Urine Urobilinogen Negative (Negative) Ur Leukocyte Esterase Negative (Negative) Nasal Screen MRSA (PCR) (Negative) COVID-19 Eval Order Covid19 at [facility] SARS-CoV-2 (PCR) NEGATIVE (Negative) Blood Type Blood Type Recheck Antibody Screen Crossmatch 04/05/21 04/05/21 Range/Units 22:23 22:23 WBC 16.93 H (4.8-10.8) K/uL RBC 4.61 L (4.7-6.1) M/uL Hgb 14.1 (14.0-18.0) g/dL Hct 39.6 L (42-52) % MCV 85.9 (80-100) fL MCH 30.6 (25-34) pg MCHC 35.6 (32-36) g/dL RDW Std Deviation 42.1 (36.4-46.3) fL RDW Coeff of Katty 13.3 (11.5-14.5) % Plt Count 196 (130-400) K/uL MPV 11.5 H (7.4-10.4) fL Immature Gran % (Auto) 0.4 % Neut % (Auto) 74.7 % Lymph % (Auto) 17.2 % [place] % (Auto) 6.4 % Eos % (Auto) 1.1 % Baso % (Auto) 0.2 % Neut # (Auto) 12.67 H (1.4-6.5) K/uL Lymph # (Auto) 2.91 (1.2-3.4) K/uL [place] # (Auto) 1.08 H (0.11-0.59) K/uL Eos # (Auto) 0.18 (0-0.5) K/uL Baso # (Auto) 0.03 (0-0.2) K/uL Immature Gran # (Auto) 0.06 H (0.00-0.02) K/uL PT (9.0-12.0) Seconds INR (0.9-1.1) APTT (21.0-31.0) Seconds PTT Ratio Sodium 138 (136-145) mmol/L Potassium 3.6 (3.5-5.1) mmol/L Chloride 106 (98-107) mmol/L Carbon Dioxide 26 (21-32) mmol/L Anion Gap 7.0 (3-11) BUN 12 (7-18) mg/dl Creatinine 1.22 (0.6-1.4) mg/dl Est Cr Clr Drug Dosing 108.9 ml/min Est GFR ( Amer) 86.6 ml/min Est GFR (Non-Af Amer) 74.7 ml/min BUN/Creatinine Ratio 9.4 L (10-20) Glucose 181 H (70-99) mg/dl Lactate (0.4-2.0) mmol/L Calcium 8.2 L (8.5-10.1) mg/dl Magnesium 1.8 (1.8-2.4) mg/dl Total Bilirubin 0.8 (0.2-1) mg/dl AST 44 H (15-37) U/L ALT 92 H (12-78) U/L Alkaline Phosphatase 61 (45-117) U/L Total Creatine Kinase 163 (39-308) U/L Troponin I < 0.015 (0-0.045) ng/ml Total Protein 6.2 L (6.4-8.2) gm/dl Albumin 3.4 (3.4-5.0) gm/dl Globulin 2.8 (2.5-4.0) gm/dl Albumin/Globulin Ratio 1.2 (0.9-2) Lipase 109 (73-393) U/L TSH 1.290 (0.300-4.500) uIu/ml Urine Color Urine Appearance (Clear) Urine pH (4.5-7.5) Ur Specific [place] (1.000-1.030) Urine Protein (Negative) Urine Glucose (UA) (Negative) Urine Ketones (Negative) Urine Blood (Negative) Urine Nitrite (Negative) Urine Bilirubin (Negative) Urine Urobilinogen (Negative) Ur Leukocyte Esterase (Negative) Nasal Screen MRSA (PCR) (Negative) COVID-19 Eval Order SARS-CoV-2 (PCR) (Negative) Blood Type Blood Type Recheck Antibody Screen Crossmatch
[2021-04-06] MEDS ORDERED: SODIUM CHLORIDE 0.9% 1000ML 1,000 ML IV SCH (10:00)
--- NOTE | 2021-04-06 10:17 | Hospitalist Progress Note ---
Date of Service April 06, 2021 Assessment & Plan (1) Hemoperitoneum: Plan: Acute hemoperitoneum/history of endoscopic biopsy 04/05/[address] Paddy Gunter from [facility] Continue NPO status with just sips Change IVF's to NSS at 100 mL/h Serial H&H shows some drifting downward. Hemoglobin was 14.1 and is now 12.4 Discontinue pantoprazole drip and just give 40 mg p.o. daily Continue Zosyn 4.5 g IV every 8 hours due to risk of abscess/infection Discontinue fentanyl and give morphine or Dilaudid for pain control Patient seen by Dr. Cavanaugh from general surgery. Recommend transfer to tertiary care facility for interventional radiology Patient seen by gastroenterology. Recommend transfer to tertiary care facility for interventional radiology especially in light of drifting hemoglobin Hemodynamically stable We will downgrade from intensive care to medical (2) Transaminitis: Plan: Chronic Follows with outpatient gastroenterology Liver biopsy yesterday -results are pending (3) Hypertension: Plan: Patient currently 2 L ahead secondary to IV fluid Systolic blood pressure 150 Reinstitute home antihypertensives Monitor vital signs per protocol (4) Hyperglycemia: Plan: Glucose 181 upon admission No history of diabetes mellitus patient is overweight Check hemoglobin A1c Hyperglycemic protocol (5) Neutrophilic leukocytosis: Plan: Continue Zosyn 4.5 g IV every 8 hours empirically for 48 hours (6) Morbid obesity: Plan: BMI is 41 Plan: Will call [facility] to recommend transfer to tertiary care facility for monitoring and possible intervention by interventional radiology Discussed with patient and his Zaynab who are in agreement Admission and Anticipated Discharge Date Admission Date: April 06, 2021 Supervising Physician Co-Signing Physician Notes Patient seen and examined with Yao Munoz PA-C. I agree with his exam findings, review of systems, assessment and plan. I personally reviewed the lab work and imaging as well. Subjective Attending: Dr. Mccurdy 40-year-old male admitted yesterday for acute hemorrhage from liver biopsy. Patient continues to have abdominal pain. Hemoglobin is trending downward. Is unclear if there is continued bleeding or if patient has delusional effect from IV fluids. He has been on normal saline with 20 mEq of potassium chloride per liter at 150 cc/h. He is currently 2 L ahead with cumulative I's and O's. Patient's pain is better controlled with morphine and fentanyl. He has no fever or chills. He did have some clamminess last night and at least 3 episodes of presyncope. It is suspected this was a vasovagal response. Patient denies any hematochezia or melena. No hematemesis. Patient does have some pain radiating into both shoulders. He also complains of increased pain with deep inspiration. Review of Systems Review of Systems: All systems reviewed & are unremarkable except as noted in Subjective Physical Exam Physical Exam: GENERAL : No acute distress but appears ill EYES: No icterus, gaze conjugate. Pupils equal round and reactive to light NOSE: No evidence of epistaxis. No septal breech MOUTH: No lesions or candidiasis. Mucosa moist. Good oral hygiene. No evidence of dental caries NECK: Supple. No carotid bruits or stridor appreciated LUNGS: CTA B/L, no wheezes, rales or rhonchi. Inspiratory effort compromised by pain HEART: Regular, rate controlled ABDOMEN: Soft, ND, BS Present in all 4 quadrants and hyperactive. Pain to palpation in right upper quadrant, right lower quadrant, left lower quadrant. No significant midepigastric pain. No pain to deep palpation in the suprapubic region. EXTREMITIES: No LE edema, pedal pulses intact and equal bilaterally. Negative Homans' sign NEURO: A&OX3. Results & Data Results & Data ([facility]) Vital Signs (Past 12 Hours) Vital Signs Temp Pulse Pulse Resp BP BP Pulse Ox 04/06/21 08:39 95 H 20 141/85 H 94 04/06/21 07:39 104 H 25 H 125/86 04/06/21 06:00 84 17 122/72 04/06/21 05:00 86 18 117/73 04/06/21 04:00 36.4 C L 83 19 147/91 H 04/06/21 03:27 90 17 130/71 04/06/21 02:36 79 17 128/76 04/06/21 01:31 36.5 C 91 H 17 131/87 04/06/21 01:00 72 24 115/76 04/06/21 00:55 78 20 127/75 04/06/21 00:50 79 20 123/72 04/06/21 00:45 68 24 118/74 04/06/21 00:40 80 20 136/79 94 04/06/21 00:35 72 19 115/77 95 04/06/21 00:33 68 28 H 89/47 L 95 04/06/21 00:00 78 20 125/81 98 04/05/21 23:32 80 20 126/83 98 04/05/21 23:00 80 24 142/98 H 98 04/05/21 22:30 76 19 118/70 96 04/05/21 22:26 68 123/75 04/05/21 22:22 63 15 97/58 L 04/05/21 22:20 50 L 82/50 L 04/05/21 22:19 47 L 72/48 L 04/05/21 22:18 47 L 49 L 23 75/38 L 75/38 L 99 04/05/21 22:17 46 L 20 92/45 L 100 Laboratory Results 04/06/21 07:54 04/06/21 04:13 INR 1.0 (0.9-1.1) 04/06/21 00:12 04/05/21 22:23 Troponin I < 0.015 Diagnostic Findings Abdomen/Pelvis CT 04/05/21 21:[address] WITHOUT CONTRAST CT DOSE: 1848.21 mGy.cm HISTORY: Upper abdominal pain. Recent endoscopy. TECHNIQUE: Multiaxial CT images of the abdomen and pelvis were performed without contrast. A dose lowering technique was utilized adhering to the principles of ALARA. COMPARISON STUDY: None. FINDINGS: A punctate calcified granuloma and mild dependent changes seen within the lower lobes. No pneumoperitoneum. No pneumatosis. A 3.8 cm mixed sclerotic and lucent lesion within the proximal right femur. Deformity within the right anterior iliac wing may be due to old posttraumatic changes. No acute fractures within the visualized osseous structures. There is a 6 mm gallstone. No gallbladder wall thickening. The unenhanced pancreas, adrenal glands, and kidneys are unremarkable. No hydronephrosis. No retroperitoneal lymphadenopathy. Normal caliber abdominal aorta. The bladder is unremarkable. Colonic diverticulosis. No evidence for acute diverticulitis. No bowel wall thickening or obstruction. Normal appendix. There is a moderate amount of hemoperitoneum seen within the pelvis. There is also a moderate amount of hemoperitoneum surrounding the spleen and a few additional areas of hemorrhage along the undersurface of the liver and right upper quadrant mesentery surrounding the duodenal bulb which could represent a hyperdense clot sign. Therefore, this could represent the location of the bleed. However, the exact location of the bleed is not confirmed on this study. There is a heterogeneous appearance to the right inferior hepatic lobe on image 214 which could represent subcapsular hemorrhage or intraparenchymal hemorrhage/injury. This could also be the location of the bleed. IMPRESSION: 1. Moderate amount of hemoperitoneum seen within the pelvis, surrounding the spleen, and along the undersurface of the liver. There is hyperdense clot seen along the undersurface of the liver, surrounding the expected location of the duodenal bulb, and within the right upper quadrant mesentery. This favors the origin of the bleed and therefore could be associated with the duodenal bulb, mesentery, or liver. However, the exact origin of the bleed is is not clearly demonstrated on this examination. 2. No pneumoperitoneum to suggest bowel perforation. 3. Additional findings as described above. ACT 112: Negative or not required by law. Electronically signed by: Bhupinder Mckenna M.D. 04/06/2021 8:21 AM Chest X-Ray 04/05/21 21:46 XR chest 1V portable CLINICAL HISTORY: Syncope. COMPARISON STUDY: Chest radiograph January 26, 2021. FINDINGS: Lung volumes are mildly diminished. There is no pneumothorax or pleural effusion. No evidence for pulmonary edema. Cardiac size is at the upper limits of normal. IMPRESSION: No acute cardiopulmonary findings. ACT 112: Negative or not required by law. Electronically signed by: Tru hCao M.D. 04/06/2021 7:[address] 04/05/21 21:46 CT OF THE HEAD WITHOUT CONTRAST CLINICAL HISTORY: Syncope. COMPARISON STUDY: Head CT February 01, 2015. CT DOSE: 537.48 mGy.cm TECHNIQUE: Helical axial images of the head were obtained without IV contrast. Automated exposure control was utilized for the study. A dose lowering technique was utilized adhering to the principles of ALARA. FINDINGS: No acute intracranial hemorrhage, midline shift or mass effect is present. The ventricular system is unremarkable. The basal cisterns are patent. No extra-axial collections are present. There are no findings to suggest acute dural sinus thrombosis or acute territorial infarct. No significant calvarial abnormalities are present. Visualized portions of the sinuses and mastoid air cells are clear. IMPRESSION: No acute intracranial findings. ACT 112: Negative or not required by law. Electronically signed by: Tru Chao M.D. 04/06/2021 7:47 AM Abdomen/Pelvis CT 04/05/21 23:01 CT OF THE ABDOMEN AND PELVIS WITH CONTRAST CLINICAL HISTORY: Upper abdominal pain. COMPARISON STUDY: CT of the abdomen and pelvis April 05, 2021 11:01 PM. Right upper quadrant ultrasound January 26, 2021. TECHNIQUE: Following IV administration of 92 mL of Optiray, axial images of the abdomen and pelvis were obtained from the lung bases to the proximal femurs. Images were reviewed in the axial, sagittal, and coronal planes. IV contrast was administered without complication. Automated exposure control was utilized for the study. A dose lowering technique was utilized adhering to the principles of ALARA. CT DOSE: 1648.83 mGy.cm FINDINGS: Lung bases are unremarkable. No pneumatosis, free air or portal venous gas is present. There is moderate hemoperitoneum. This is similar to CT performed at 11:02 PM tonight. The clot is densest along the inferior aspect of the right hepatic lobe as well as adjacent to the distal stomach and duodenum. No hepatic laceration is identified. There is no active extravasation. Mild splenomegaly is noted. There is hepatic steatosis. There are no hepatic lesions. There is a gallstone within the gallbladder. There is no hydronephrosis. There is also hemoperitoneum within the pelvis. The source is likely within the upper abdomen. No acute fracture is identified within visualized skeletal structures. 3.8 cm mixed lucent and sclerotic lesion within the right femoral neck is indeterminate but does not have aggressive imaging characteristics. This is likely benign. IMPRESSION: 1. Moderate hemoperitoneum, similar to CT performed earlier tonight. No active extravasation. No definitive source for bleeding however primary considerations include the liver or the distal stomach/duodenum. 2. Hepatic steatosis. No hepatic laceration identified. 3. Mild splenomegaly. ACT 112: Negative or not required by law. Electronically signed by: Tru Chao M.D. 04/06/2021 8:07 AM PG Care Time/CCT Total # of Minutes Spent Total Time Spent with Patient: Total time spent is greater than 50% in coordination of care (as documented) at patient's floor/unit and/or counseling p atient: Coding Level of Care Code 65651 Subseq Hosp Care Lvl 3 Diagnoses Hemoperitoneum K66.1 Transaminitis R74.01 Hypertension I10 Hyperglycemia R73.9 Neutrophilic leukocytosis D72.9 Morbid obesity E66.01 Time Spent (min) 45 Comment Including time to call [facility]
[2021-04-06] MEDS: PANTOprazole 40 MG TAB PO SCH (10:39)
[2021-04-06] MEDS ORDERED: PANTOprazole 40 MG in SYRINGE 0 ML IV SCH (11:00)
--- NOTE | 2021-04-06 11:48 | Billing Data ---
Date of Service April 06, 2021 Coding Level of Care Code 44487 Subseq Hosp Care Lvl 3
[2021-04-06] MEDS: amLODIPine BESYLATE 5 MG TAB PO SCH (12:01)
[2021-04-06 16:30] LABS: Hematocrit (blood only) 35.2 % (42-52); Hemoglobin 12.5 g/dL (14.0-18.0)
[2021-04-06] MEDS ORDERED: ACETAMINOPHEN 325 MG TAB PO ONE (16:32)
[2021-04-06] MEDS ORDERED: LORazepam 1 MG TAB SL STA (17:19)
[2021-04-06] MEDS ORDERED: LORazepam 1 MG TAB SL PRN (17:25)
[2021-04-06] MEDS ORDERED: traMADol HCL 50 MG TABLET PO PRN (17:56)
[2021-04-06] MEDS ORDERED: oxyCODONE HCL SOLN 5 MG/5 ML UDC PO PRN (17:56)
[2021-04-06 20:53] LABS: Hemoglobin 11.9 g/dL (14.0-18.0)
--- NOTE | 2021-04-06 22:24 | Communication Note ---
Date of Service: April 06, 2021 Patient known to our service from last evening. He was admitted with hemoperitoneum. Serial hemoglobin hematocrits have been checked. Patient's most recent hemoglobin was at approximately 8:20 PM this evening which was noted to be 11.9. At approximately 4:15 PM his hemoglobin was 12.5 therefore he did not demonstrate an exorbitant drop over the past 4 hours. I did discuss with the cement kiln operator on duty and he notes there is current plans to recheck a hemoglobin and hematocrit at midnight tonight. He notes that if the patient does continue to have further drops his H&H the subject of transfer to a tertiary care facility for interventional radiology service may be rediscussed. I did visit with the patient at bedside. He notes that his abdominal pain that was noted at time of admission is markedly improved. He denies any chest pain, shortness of breath, lightheadedness, dizziness, or nausea or vomiting. Patient's vitals were reviewed and he has not had any episodes of hypotension in the past 12 hours. Patient has had a slight tachycardia noted. Is unclear if the patient's drop in hemoglobin and hematocrit are due to ongoing blood loss or if it is dilutional from intravenous fluids. I would suspect a more significant drop in his H&H if he was actively bleeding. I do suspect that his tachycardia was in part due to some pain that he was having. We will continue to monitor closely.
[2021-04-07 00:35] LABS: Hematocrit (blood only) 32.7 % (42-52); Hemoglobin 11.6 g/dL (14.0-18.0)
[2021-04-07] MEDS: PIPERACILLIN/TAZOBACTAM 4.5 GM in DEXTROSE 5% 100 ML IV SCH ×3 (05:46→22:34)
[2021-04-07 05:51] LABS: Basophils # (auto) 0.02 K/uL (0-0.2); Basophils % (auto) 0.2 %; Eosinophils # (auto) 0.22 K/uL (0-0.5); Hematocrit (blood only) 35.3 % (42-52); Hemoglobin 12.3 g/dL (14.0-18.0); Immature Granulocytes # (auto) 0.03 K/uL (0.00-0.02); Immature Granulocytes % (auto) 0.3 %; Lymphocytes # (auto) 2.98 K/uL (1.2-3.4); Lymphocytes % (auto) 26.9 %; Mean Corpuscular Hemoglobin 29.5 pg (25-34); Mean Corpuscular Volume 84.7 fL (80-100); Mean Platelet Volume 10.8 fL (7.4-10.4); Monocytes # (auto) 0.88 K/uL (0.11-0.59); Monocytes % (auto) 7.9 %; Neutrophils # (auto) 6.95 K/uL (1.4-6.5); Neutrophils % (auto) 62.7 %; Platelet Count 156 K/uL (130-400); RDW Coefficient of Variation 13.2 % (11.5-14.5); RDW Standard Deviation 40.2 fL (36.4-46.3); Red Blood Count 4.17 M/uL (4.7-6.1); White Blood Count 11.08 K/uL (4.8-10.8)
[2021-04-07 05:52] LABS: Mean Corpuscular Hgb Conc 34.8 g/dL (32-36)
--- NOTE | 2021-04-07 05:56 | Electrocardiogram Report ---
Test Reason : Blood Pressure : / mmHG Vent. Rate : 074 BPM Atrial Rate : 074 BPM P-R Int : 144 ms QRS Dur : 088 ms QT Int : 390 ms P-R-T Axes : 033 034 026 degrees QTc Int : 432 ms Normal sinus rhythm Normal ECG When compared with ECG of 06-MAR-2020 12:54, No significant change was found Confirmed by Jeremie Arboleda ([id number]) on 04/07/2021 5:56:10 AM Referred By: REFERRED SELF Confirmed By:Jeremie Arboleda
[2021-04-07 06:10] LABS: Albumin Level 3.7 gm/dl (3.4-5.0); BUN Creatinine Ratio 8.1 (10-20); Calcium 8.3 mg/dl (8.5-10.1); Creatinine Clr Calc Pharmacy 144.2 ml/min; Est GFR (African American) 118.7 ml/min; Est GFR (Non-African American) 102.4 ml/min; Potassium 3.6 mmol/L (3.5-5.1)
[2021-04-07 06:14] LABS: Albumin Globulin Ratio 1.2 (0.9-2); Bilirubin,Total 2.2 mg/dl (0.2-1); Total Protein 6.7 gm/dl (6.4-8.2)
[2021-04-07] MEDS: amLODIPine BESYLATE 5 MG TAB PO SCH (08:34)
[2021-04-07] MEDS: PANTOprazole 40 MG TAB PO SCH (08:35)
--- NOTE | 2021-04-07 12:47 | Hospitalist Progress Note ---
Date of Service April 07, 2021 Assessment & Plan (1) Hemoperitoneum: Plan: Acute hemoperitoneum/history of endoscopic biopsy 04/05/[address] Paddy Gunter from [facility] Hb was 14.1 on admission, dropped to 12.4 yesterday, 12.5 last night then 11.6, now 12.3 this morning BP and HR stable on monitor Continue Zosyn 4.5 g IV every 8 hours due to risk of abscess/infection, likely don't give further antibiotics on discharge appreciate GI consultations and surgery consultation initially accepted at [facility] for IR if needed, however, no immediate beds available since he has remained stable will hold off on transfer H/H this evening and in morning if H/H remains stable and vitals stable, then likely discharge tomorrow afternoon (2) Transaminitis: Plan: Chronic Follows with outpatient gastroenterology Liver biopsy - follow up with GI outpatient (3) Hypertension: Plan: Reinstitute home antihypertensives BP 133/80 today Monitor vital signs per protocol (4) Hyperglycemia: Plan: Glucose 181 upon admission No history of diabetes mellitus patient is overweight Hyperglycemic protocol (5) Neutrophilic leukocytosis: Plan: Continue Zosyn 4.5 g IV every 8 hours empirically (6) Morbid obesity: Plan: BMI is 41 Plan: as above hopeful for discharge tomorrow Admission and Anticipated Discharge Date Admission Date: April 06, 2021 Subjective patient doing much better, less epigastric pain, can now take a deep breath without pain eating well, had a BM today that was dark, he did not strain, afterwards had some lower abdominal pain no fever/chills, no chest pain/pressure, no nausea/vomiting reviewed labs, Hb is 12.3 this morning, up from 11.6, blood pressure and heart rate stable he walked a lap in the ICU, encouraged him to continue to do that updated his Zaynab Review of Systems Review of Systems: All systems reviewed & are unremarkable except as noted in Subjective Physical Exam Constitutional: well developed, well nourished, + obese and comfortable; no acute distress and not ill appearing Neck: trachea midline, no thyromegaly Respiratory: normal respiratory effort, lungs clear to auscultation Cardiovascular: RRR, no murmur, no edema Gastrointestinal (Abdomen): Inspection/Auscultation: abdomen normal to inspection and normal bowel sounds; abdomen not distended and no abdominal edema Percussion/Palpation: + abdomen tender (lower abdomen), abdomen soft and + dullness to percussion; no guarding and abdomen not rigid Musculoskeletal: no cyanosis or clubbing, extremities motor strength 5/5 Skin: no rashes, warm and dry Neurologic: normal touch/pain/proprioception, CN's II-XI intact bilaterally, moves all extremities and awake; no focal motor deficits Psychiatric: A+Ox3, euthymic affect Results & Data Results & Data ([facility]) Vital Signs (Past 12 Hours) Vital Signs Temp Pulse Resp BP Pulse Ox 04/07/21 07:44 37.0 C 87 24 133/80 95 04/07/21 04:00 36.9 C 99 H 20 152/90 H 95 Laboratory Results Laboratory Results - last 24 hr 04/06/21 04/06/21 04/07/21 16:16 20:17 00:26 WBC RBC Hgb 12.5 L 11.9 L 11.6 L Hct 35.2 L 34.0 L 32.7 L MCV MCH MCHC RDW Std Deviation RDW Coeff of Katty Plt Count MPV Immature Gran % (Auto) Neut % (Auto) Lymph % (Auto) [place] % (Auto) Eos % (Auto) Baso % (Auto) Neut # (Auto) Lymph # (Auto) [place] # (Auto) Eos # (Auto) Baso # (Auto) Immature Gran # (Auto) Sodium Potassium Chloride Carbon Dioxide Anion Gap BUN Creatinine Est Cr Clr Drug Dosing Est GFR ( Amer) Est GFR (Non-Af Amer) BUN/Creatinine Ratio Glucose Calcium Total Bilirubin AST ALT Alkaline Phosphatase Total Protein Albumin Globulin Albumin/Globulin Ratio 04/07/21 04/07/21 05:35 05:35 WBC 11.08 H RBC 4.17 L Hgb 12.3 L Hct 35.3 L MCV 84.7 MCH 29.5 MCHC 34.8 RDW Std Deviation 40.2 RDW Coeff of Katty 13.2 Plt Count 156 MPV 10.8 H Immature Gran % (Auto) 0.3 Neut % (Auto) 62.7 Lymph % (Auto) 26.9 [place] % (Auto) 7.9 Eos % (Auto) 2.0 Baso % (Auto) 0.2 Neut # (Auto) 6.95 H Lymph # (Auto) 2.98 [place] # (Auto) 0.88 H Eos # (Auto) 0.22 Baso # (Auto) 0.02 Immature Gran # (Auto) 0.03 H Sodium 133 L Potassium 3.6 Chloride 102 Carbon Dioxide 27 Anion Gap 4.0 BUN 8 Creatinine 0.94 Est Cr Clr Drug Dosing 144.2 Est GFR ( Amer) 118.7 Est GFR (Non-Af Amer) 102.4 BUN/Creatinine Ratio 8.1 L Glucose 135 H Calcium 8.3 L Total Bilirubin 2.2 H D AST 30 ALT 73 Alkaline Phosphatase 57 Total Protein 6.7 Albumin 3.7 Globulin 3.0 Albumin/Globulin Ratio 1.2 Medications Administered Current Inpatient Medications Amlodipine Besylate (Amlodipine Besylate 5 Mg Tab) 10 mg PO DAILY [facility] Stop: 05/06/21 10:59 Last Admin: 04/07/21 08:34 Dose: 10 mg Documented by: Piperacillin Sod/Tazobactam (Sod 4.5 gm/ Dextrose) 120 mls @ 30 mls/hr IV Q8H MARCIE; Protocol Stop: 04/08/21 05:59 Last Infusion: 04/07/21 09:48 Dose: Infused Documented by: Lorazepam (Lorazepam 1 Mg Tab) 1 mg SL Q6H PRN PRN Reason: Agitation Stop: 05/06/21 17:24 Miscellaneous Information (Piperacill/Tazobac Consult Active) 1 ea N/A UD PRN PRN Reason: Consult Stop: 05/06/21 01:13 Morphine Sulfate (Morphine Sulfate 2 Mg/Ml Carp) 2 mg IV Q4H PRN PRN Reason: Pain Stop: 04/20/21 08:29 Last Admin: 04/06/21 09:01 Dose: 2 mg Documented by: Oxycodone HCl (Oxycodone Hcl Soln 5 Mg/5 Ml Udc) 5 mg PO Q6H PRN PRN Reason: Pain Stop: 04/20/21 17:55 Pantoprazole Sodium (Pantoprazole 40 Mg Tab) 40 mg PO QAM MARCIE Stop: 05/06/21 09:59 Last Admin: 04/07/21 08:35 Dose: 40 mg Documented by: Tramadol HCl (Tramadol Hcl 50 Mg Tablet) 50 mg PO Q4H PRN PRN Reason: Pain Stop: 05/06/21 17:55 Last Admin: 04/07/21 04:53 Dose: 50 mg Documented by: PG Care Time/CCT Total # of Minutes Spent Total Time Spent with Patient: Total time spent is greater than 50% in coordination of care (as documented) at patient's floor/unit and/or counseling patient: Coding Level of Care Code 10047 Subseq Hosp Care Lvl 2 Diagnoses Hemoperitoneum K66.1 Transaminitis R74.01 Hypertension I10 Hyperglycemia R73.9 Neutrophilic leukocytosis D72.9 Morbid obesity E66.01
[2021-04-07 18:12] LABS: Hematocrit (blood only) 34.5 % (42-52); Hemoglobin 12.4 g/dL (14.0-18.0)
[2021-04-08 07:14] LABS: Basophils # (auto) 0.02 K/uL (0-0.2); Basophils % (auto) 0.2 %; Eosinophils % (auto) 2.8 %; Hematocrit (blood only) 33.9 % (42-52); Immature Granulocytes # (auto) 0.03 K/uL (0.00-0.02); Immature Granulocytes % (auto) 0.3 %; Lymphocytes % (auto) 29.2 %; Mean Corpuscular Hemoglobin 30.2 pg (25-34); Mean Corpuscular Hgb Conc 35.4 g/dL (32-36); Mean Corpuscular Volume 85.2 fL (80-100); Mean Platelet Volume 10.7 fL (7.4-10.4); Monocytes # (auto) 0.88 K/uL (0.11-0.59); Monocytes % (auto) 8.3 %; Neutrophils # (auto) 6.29 K/uL (1.4-6.5); Neutrophils % (auto) 59.2 %; Platelet Count 174 K/uL (130-400); RDW Coefficient of Variation 13.4 % (11.5-14.5); Red Blood Count 3.98 M/uL (4.7-6.1); White Blood Count 10.62 K/uL (4.8-10.8)
[2021-04-08 07:37] LABS: Albumin Level 3.4 gm/dl (3.4-5.0); BUN Creatinine Ratio 9.2 (10-20); Calcium 8.6 mg/dl (8.5-10.1); Creatinine Clr Calc Pharmacy 130.4 ml/min; Est GFR (African American) 107.6 ml/min; Est GFR (Non-African American) 92.8 ml/min; Potassium 3.5 mmol/L (3.5-5.1)
[2021-04-08 07:43] LABS: Bilirubin,Total 1.4 mg/dl (0.2-1); Globulin 3.3 gm/dl (2.5-4.0); Total Protein 6.7 gm/dl (6.4-8.2)
--- NOTE | 2021-04-08 09:20 | Discharge Summary ---
Date of Service April 08, 2021 Admission HPI Per Admitting Provider The patient is a 40-year-old male with a past medical history including hypertension, transaminitis and obesity. Earlier in the morning, had undergone an upper endoscopy by gastroenterology, had biopsies taken and was discharged to home. He had been doing well until supper this evening, when he felt like he was going to pass out. His significant other reports that she cleaned them gently backwards, but already passed out by that time. There is no history of trauma there is a history of a mononucleosis infection in January earlier this year. In the emergency department, work-up included the following: CT scan of abdomen pelvis showed acute hemoperitoneum. He was noted to be briefly hypotensive while in ED, but did respond to IV fluid rehydration The patient will be moved to the ICU for close follow-up Principal Diagnosis Acute hemoperitoneum after liver biopsy Discharge Exam Constitutional well developed, well nourished, + obese and comfortable; no acute distress and not ill appearing Neck trachea midline, no thyromegaly Respiratory normal respiratory effort, lungs clear to auscultation Cardiovascular RRR, no murmur, no edema Gastrointestinal (Abdomen) Inspection/Auscultation: abdomen normal to inspection and normal bowel sounds; abdomen not distended and no abdominal edema Percussion/Palpation: abdomen soft and + dullness to percussion; abdomen nontender, no guarding and abdomen not rigid Musculoskeletal no cyanosis or clubbing, extremities motor strength 5/5 Skin no rashes, warm and dry Neurologic normal touch/pain/proprioception, CN's II-XI intact bilaterally, moves all extremities and awake; no focal motor deficits Psychiatric A+Ox3, euthymic affect Discharge Data Allergies Allergy/AdvReac Type Severity Reaction Status Date / Time lisinopril AdvReac Intermediate cough Verified 04/05/21 22:06 Consultations 04/06/21 00:18 Consult General Surgery Stat ED Decision to Admit Stat 04/06/21 01:45 Consult Manager Maintenance Routine 04/06/21 08:38 Consult Gastroenterology Stat Ordered Studies 04/05/21 21:46 CT abd pelvis wo con Urgent CT head/brain wo con Urgent 04/05/21 23:01 CT abd pelvis IV con only Urgent Hospital Course (1) Hemoperitoneum: Acute hemoperitoneum/history of endoscopic biopsy 04/05/[address] Paddy Gunter from [facility] Hb was 14.1 on admission, it is 12.0 today, has been stable for over 48 hours BP and HR stable, no abdominal pain, eating well, moving his bowels treat with Zosyn 4.5 g IV every 8 hours due to risk of abscess/infection, no need to continue on discharge appreciate GI consultations and surgery consultation initially accepted at [facility] for IR if needed, however, no immediate beds available since he has remained stable will hold off on transfer discharge to home no heavy lifting, no strenuous activity follow up with PCP and with general surgery work excuse for two weeks off (2) Transaminitis: Chronic Follows with outpatient gastroenterology Liver biopsy - follow up with GI outpatient (3) Hypertension: Reinstitute home antihypertensives BP slightly elevated prior to getting meds this morning (4) Hyperglycemia: Glucose 181 upon admission No history of diabetes mellitus patient is overweight Hyperglycemic protocol (5) Neutrophilic leukocytosis: Continue Zosyn 4.5 g IV every 8 hours empirically can stop on discharge (6) Morbid obesity: BMI is 41 discharge to home Total Time Total Time Spent Total Time Spent (In Minutes): 32 Total Time Includes: Examination of the Patient, Discharge Planning, Medication Reconciliation and Communication With Other Providers Discharge Plan Discharge Items Patient Disposition: Home - Self-Care Reason For Visit: ACUTE HEMOPERITONEUM Discharge Diagnosis: Acute hemoperitoneum after liver biopsy Transaminitis Abdominal pain Condition on Discharge: Good Activity: Per Instructions section Lifting: No more than 5 pounds Lifting Comment: nothing more than jug of milk for next week Bathing: No limitations Sexual Activity: When tolerated Exercise/Sports: Gradually increase as tolerated Driving/Machine Use: No limitations Weightbearing: Full weightbearing Non-emergency contact: Primary Care Provider and Surgeon Call non-emergency contact if: you have any medication questions Follow-up/Referrals: Maximiliano Cavanaugh MD, FACS [Physician] - (1-2 weeks) Fransisco Lucia DO [Primary Care Provider] - (one week) Diet: Low Sodium (2gm) Addtl Attending Provider Instructions: Hemoglobin is stable for three days, no further signs of bleeding take it easy, no strenuous activity for 1 week, no heavy lifting for one week, after one week would limit to 25 lbs, do not lift your children etc. no restrictions in diet follow up with GI for biopsy results Pending Studies at Discharge: No Stand-Alone Forms: My [facility], Work/School Release, Smoking Cessation Medications and DC Order Prescriptions: New tramadol 50 mg Tablet 50 mg PO Q4H PRN (Reason: pain) 10 Days Qty: 20 RF: 0 Continued amlodipine 10 mg tablet 10 mg PO DAILY Qty: 90 RF: 1 pantoprazole 40 mg tablet,delayed release (DR/EC) 40 mg PO DAILY RF: 0 hydrochlorothiazide 12.5 mg tablet 12.5 mg PO DAILY Qty: 90 RF: 1 Metamucil 3.4 gram/5.4 gram Powder 1 tbsp PO DAILY RF: 0 Discharge Orders: Discharge Order (Routine); Ordered 04/08/21 Ordered By: Amari Mccurdy Admission Data Admit Date/Time: 04/06/21 00:55 Attending Provider: Amari Mccurdy Admit Provider: Jose Casillas Primary Care Provider: Fransisco Lucia Other Providers: Maximiliano Cavanaugh ; Jose Casillas ; [facility] ; Vivian Dobbs Coding Level of Care Code D/C DAY MANAGEMENT >30 MINS Diagnoses Hemoperitoneum K66.1 Transaminitis R74.01 Hypertension I10 Hyperglycemia R73.9 Neutrophilic leukocytosis D72.9 Morbid obesity E66.01
[2021-04-08] MEDS: PANTOprazole 40 MG TAB PO SCH (10:08)
[2021-04-08] MEDS: amLODIPine BESYLATE 5 MG TAB PO SCH (10:09)
--- NOTE | 2021-04-08 10:39 | Surgery Progress Note ---
Date of Service April 08, 2021 Assessment & Plan (1) Hemoperitoneum: (2) Morbid obesity: (3) Post-operative haemorrhage: Plan: 40-year-old gentleman with post procedure intra-abdominal hemorrhage. He is stable currently. His hemoglobin and hematocrit have been stable at 12 and 34 over the past 3 draws. He is okay for discharge from the surgical standpoint. We will have him follow-up with general surgery in 1 to 2 weeks. If any further symptoms arise, he is to call immediately. Admission and Anticipated Discharge Date Admission Date: April 06, 2021 Subjective Patient seen and evaluated at the bedside. He is doing very well. He denies any pain or tenderness. He is tolerating his diet. Review of Systems Review of Systems: All systems reviewed & are unremarkable except as noted in Subjective Physical Exam Constitutional: WD/WN, vitals as above Eyes: PERRL, conjunctivae normal, anicteric sclerae Neck: trachea midline, no thyromegaly Gastrointestinal (Abdomen): Inspection/Auscultation: abdomen normal to inspection; abdomen not distended Percussion/Palpation: abdomen soft; abdomen nontender, no guarding and abdomen not rigid Musculoskeletal: Extremities: no cyanosis and no clubbing Skin: no rashes, warm and dry Psychiatric: A+Ox3, euthymic affect Results & Data ([facility]) Vital Signs (Past 12 Hours) Vital Signs Temp Pulse Pulse Resp BP BP Pulse Ox 04/08/21 10:05 36.8 C 90 18 142/92 H 143/86 H 97 04/08/21 07:32 36.8 C 90 18 143/86 H 97 04/07/21 23:24 89 04/07/21 23:00 36.7 C 84 20 142/92 H 97 Laboratory Results 04/08/21 04/08/21 04/07/21 Range/Units 06:38 06:38 18:06 WBC 10.62 (4.8-10.8) K/uL RBC 3.98 L (4.7-6.1) M/uL Hgb 12.0 L 12.4 L (14.0-18.0) g/dL Hct 33.9 L 34.5 L (42-52) % MCV 85.2 (80-100) fL MCH 30.2 (25-34) pg MCHC 35.4 (32-36) g/dL RDW Std Deviation 41.0 (36.4-46.3) fL RDW Coeff of Katty 13.4 (11.5-14.5) % Plt Count 174 (130-400) K/uL MPV 10.7 H (7.4-10.4) fL Immature Gran % (Auto) 0.3 % Neut % (Auto) 59.2 % Lymph % (Auto) 29.2 % [place] % (Auto) 8.3 % Eos % (Auto) 2.8 % Baso % (Auto) 0.2 % Neut # (Auto) 6.29 (1.4-6.5) K/uL Lymph # (Auto) 3.10 (1.2-3.4) K/uL [place] # (Auto) 0.88 H (0.11-0.59) K/uL Eos # (Auto) 0.30 (0-0.5) K/uL Baso # (Auto) 0.02 (0-0.2) K/uL Immature Gran # (Auto) 0.03 H (0.00-0.02) K/uL Sodium 139 (136-145) mmol/L Potassium 3.5 (3.5-5.1) mmol/L Chloride 107 (98-107) mmol/L Carbon Dioxide 27 (21-32) mmol/L Anion Gap 5.0 (3-11) BUN 9 (7-18) mg/dl Creatinine 1.02 (0.6-1.4) mg/dl Est Cr Clr Drug Dosing 130.4 ml/min Est GFR ( Amer) 107.6 ml/min Est GFR (Non-Af Amer) 92.8 ml/min BUN/Creatinine Ratio 9.2 L (10-20) Glucose 122 H (70-99) mg/dl Calcium 8.6 (8.5-10.1) mg/dl Total Bilirubin 1.4 H (0.2-1) mg/dl AST 30 (15-37) U/L ALT 67 (12-78) U/L Alkaline Phosphatase 50 (45-117) U/L Total Protein 6.7 (6.4-8.2) gm/dl Albumin 3.4 (3.4-5.0) gm/dl Globulin 3.3 (2.5-4.0) gm/dl Albumin/Globulin Ratio 1.0 (0.9-2) (1) Post-operative haemorrhage Procedure type: digestive system Surgical complication system/body Area: digestive system Qualified Code(s): K91.840 - Postprocedural hemorrhage of a digestive system organ or structure following a digestive system procedure
== END 2021-04-08 10:38 | disposition home or self-care (01) | DRG 919 ==
LOC: ED 21:19 → 1E 04-06 00:55 → SUATTDRO 04-06 00:55 → 1E 04-06 01:21 → 2W 04-07 18:16